=== PATIENT | male | born 1945 | race Caucasian/White ===

== ENCOUNTER 2016-12-23 10:16 | Inpatient (IN) | payer MEDICARE ==
--- NOTE | 2016-12-23 11:06 | RAD ---
TWO VIEWS CHEST: Comparison: 12-15-16, 01-01-16 History: Bilateral pneumonia. FINDINGS: Two views of the chest shows normal sized cardiomediastinal silhouette. Increased interstitial maria luz ngs are present. The patient is status post sternotomy. A pacemaker is seen with its leads in the ri ght atrium and ventricle. There are superimposed airspace opacities in both upper lobes and in the r ight lower lobe. There may be small bilateral pleural effusions. IMPRESSION: Multifocal pneumonia. POS: [facility]
[2016-12-23] MEDS ORDERED: Piperacillin/Tazobactam 4.5 GM VIAL ONE (11:25)
[2016-12-23] MEDS ORDERED: Bisacodyl 5 MG TAB PO PRN (11:52)
[2016-12-23] MEDS ORDERED: Acetaminophen 325 MG TAB PO PRN (11:52)
[2016-12-23] MEDS ORDERED: Vancomycin HCl 1 GM in Premix Bag 1 BAG IVPB SCH ×2 (12:00→21:00)
--- NOTE | 2016-12-23 12:39 | HP ---
PRIMARY CARE PHYSICIAN: Taz Piña M.D. CHIEF COMPLAINT: Shortness of breath. HISTORY OF PRESENT ILLNESS: Mr. Colón is a pleasant 71-year-old gentleman who was seen at [facility] on 12/23/2016 following transfer from [facility]. He was hospitalized at [facility] from 11/17/2016-11/23/2016. He underwent c oronary artery bypass graft during that hospitalization. He reports that 2-1/2 weeks ago, he started having shortness of breath. He reports shortness of aster ath with exertion. He also endorses orthopnea and paroxysmal nocturnal dyspnea. He also reports on and off cough that has recently become productive of yellowish sputum. He was started on cefuroxim e and steroids as well as bronchodilators by his primary care physician as outpatient. He continued to worsen. He reports worsening shortness of breath over the last 4 or 5 days. He therefore went to the emergency room at [place]. He was subsequently transferred to this facility for further m anagement. He denies any chest pain. He reports that he may have gained about 3-pound weight over the last 2 w eeks. He also reports lower extremity swelling, attributes it to steroid use. The following complete review of systems was negative, unless otherwise mentioned in the HPI or belo w: Constitutional: Weight loss or gain, sense of well-being, ability to conduct usual activities, exer cise tolerance. Skin/Breast: Rash, itching, changes in hair growth or loss, nail changes, breast lumps, tenderness, swelling, nipple discharge. Eyes: Vision, double vision, tearing, blind spots, pain. ENT/Mouth: Headaches (location, time of onset, duration, precipitating factors), vertigo, lighthead edness, injury. Vision, double vision, tearing, blind spots, pain, nose bleeding, colds, obstruction , discharge, dental difficulties, gingival bleeding, dentures, neck stiffness, pain, tenderness, mas ses in thyroid or other areas. Cardiovascular: Precordial pain, substernal distress, palpitations, syncope, dyspnea on exertion, o rthopnea, nocturnal paroxysmal dyspnea, edema, cyanosis, hypertension, heart murmurs, varicosities, phlebitis, claudication. Respiratory: Pain, shortness of breath, wheezing, stridor, cough, hemoptysis, fever or night sweats . Gastrointestinal: Poor appetite, dysphagia, indigestion, abdominal pain, heartburn, eructation, ekvin sea, vomiting, hematemesis, jaundice, constipation, or diarrhea, abnormal stools (som-colored, pili y, bloody, greasy, foul smelling), flatulence, hemorrhoids, recent changes in bowel habits. Genitourinary: Urgency, frequency, dysuria, nocturia, hematuria, polyuria, oliguria, unusual (or ch allyn in) color of urine, stones, hesitancy, change in size of stream, dribbling, acute retention or incontinence, libido, potency. Musculoskeletal: Pain, swelling, redness or heat of muscles or joints, limitation, of motion, muscu lar weakness, atrophy, cramps. Neurologic/Psychiatric: Convulsions, paralyses, tremor, incoordination, paraesthesias, difficulties with memory of speech, sensory or motor disturbances, or muscular coordination (ataxia, tremor), em otional problems, anxiety, depression, previous psychiatric care, unusual perceptions, hallucination s. Allergy/Immunologic: Skin rash, anemia, bleeding tendency, polydipsia, polyuria, intolerance to hea t or cold. PAST MEDICAL HISTORY: Significant for coronary artery disease, esophageal cancer, history of sick s inus syndrome. PAST SURGICAL HISTORY: Significant for esophagectomy, coronary artery bypass graft, fracture repair s, and pacemaker placement. ALLERGIES: He reports allergy to PENICILLIN. SOCIAL HISTORY: He does not smoke. He drinks alcohol occasionally. He denies recreational drug us e. FAMILY HISTORY: Significant for ovarian cancer in his mother. CURRENT MEDICATIONS: These include levothyroxine 125 mcg daily, Lipitor 20 mg at bedtime, prednison e oral tapering dose, Symbicort 1 puff 2 times a day, aspirin 325 mg daily, cefuroxime 250 mg 2 time s a day. CODE STATUS: I discussed his code status. He reports that he is FULL CODE. PHYSICAL EXAMINATION: GENERAL: On examination, Mr. Colón is awake and alert, not in acute distress. VITAL SIGNS: Blood pressure is 124/79, pulse is 105, his breathing at rate of 24 and saturating 95% on 2 liters of oxygen. He is afebrile. He appears frail. EYES: No scleral icterus. No conjunctival pallor. ENT: Moist mucosal membranes, no oropharyngeal erythema or exudates. NECK: Supple, nontender, patient has jugular venous distention, no thyromegaly. RESPIRATORY: Accessory muscles of breathing are mildly active. Chest wall movements are symmetric bilaterally. LUNGS: Examination reveals bilateral crackles. CARDIOVASCULAR: S1 and S2 are heard, regular. Peripheral pulses palpable. No carotid bruit, no pe ricardial rub. ABDOMEN: Soft, nontender, bowel sounds are heard, no hepatomegaly, no splenomegaly. MUSCULOSKELETAL: Power is 5/5 in all 4 extremities. He has bilateral lower extremity edema. NEUROLOGIC: Cranial nerves II-XII are intact. Deep tendon reflexes are 2+. SKIN: No rashes or subcutaneous nodules. PSYCHIATRIC: Normal mood, normal affect, patient is oriented to time, place and person. LABORATORY DATA AND IMAGING: Mr. Colón's labs and investigations were reviewed. I reviewed his elec trocardiogram, which shows normal sinus rhythm, nonspecific intraventricular conduction block, no ST changes to suggest an acute coronary syndrome. I also reviewed his chest x-ray, which shows pulmon rogelio infiltrates in both upper lobes. He also has a right lower lobe infiltrate. Laboratory investi gation done at [facility] show white count of 6,900, hemoglobin 11.2, platelet cou nt 205,000. Sodium 138, potassium 4, creatinine 1.2, calcium 8.7, CK 70, decreased albumin of 3.3, elevated alkaline phosphatase of 100, normal total bilirubin of 0.6, normal ALT, normal AST, elevate d BNP of 805 and normal troponin I. ASSESSMENT AND PLAN: Mr. Colón is a pleasant 71-year-old gentleman who was seen at [facility]. His problem list includes: 1. Shortness of breath: Etiology unclear, appears to be multifactorial, including pneumonia and co ngestive heart failure. 2. Pneumonia: Mr. Colón had recent hospitalization. Accordingly, he will be treated for hospital a cquired pneumonia. He has been started on Zosyn and vancomycin, I will continue the same. We will request Pulmonology consult for their opinion and help with further management. 3. Congestive heart failure: Suspected. Mr. Colón endorses orthopnea and paroxysmal nocturnal dysp wilder as well as lower extremity edema. We will request Cardiology Service opinion regarding new onse t congestive heart failure. We will have his pacemaker interrogated and check 2D echocardiogram. W e will also start him on diuretics. 4. Coronary artery disease, status post coronary artery bypass graft, appears to be stable. Many thanks for allowing me to participate in your patient's care. Please feel free to contact me w ith any questions or concerns. LEVEL OF RISK: High. LEVEL OF COMPLEXITY: High.
[2016-12-23 13:11] LABS: Troponin I 0.031 ng/mL (< 0.028)
[2016-12-23] MEDS ORDERED: Sodium Chloride 0.45% 1,000 ML IV SCH (15:45)
[2016-12-23 16:33] LABS: Anion Gap 13 mmol/L (10-20); BUN (Urea Nitrogen) 15 mg/dL (8.4-25.7); Calc. Creatinine Clearance 52 mL/min (70-130); Calcium 8.3 mg/dL (7.8-10.44); Carbon Dioxide 29 mmol/L (23-31); Chloride 101 mmol/L (98-107); Estimated GFR-MDRD 72
[2016-12-23] MEDS: Furosemide 20 MG/2 ML VIAL SLOW IVP SCH (16:45)
--- NOTE | 2016-12-23 17:25 | CON ---
DATE OF CONSULTATION: 12/23/2016 HISTORY OF PRESENT ILLNESS: Mr. Colón is a pleasant 71-year-old male, who has survived esophageal ca ncer with esophageal resection and a pull-through procedure. He recently underwent coronary artery bypass grafting and did well with that postoperatively. He wa s sent home and on the he was seen in [place] for complaints of cough, chest congestion, a nd shortness of breath. He received b.i.d. antibiotics (he cannot recall the name) as well as Medro l Miki it sounds like and got better for few days and then the last 4-5 days has been getting slowly worse. He subsequently has been admitted. PAST MEDICAL HISTORY: Remarkable for; 1. Esophageal cancer status post Andres Amarjit esophagectomy. 2. History of a right subclavian MediPort placement. 3. History of a left subclavian pacemaker placement. 4. History of multiple fracture repairs in the past. 5. Nonsmoker, rare drinker. 6. Hypothyroidism on replacement. 7. History of chronic obstructive pulmonary disease. 8. History of a lipid disorder. 9. History of a cystectomy. FAMILY HISTORY: Negative for vascular disease and lung disease at an early age. REVIEW OF SYSTEMS: Otherwise negative. He complains mainly of coughing and chest congestion. He s ays he feels better than he felt this morning. PHYSICAL EXAMINATION: VITAL SIGNS: He is afebrile, heart rate is 94, respiratory rate is 18, oximetry is 95% on 2 liters, blood pressure 138/89. HEENT: Pupils are equal. Sclerae is anicteric. NECK: Supple. Trachea is midline. His sternal incision is healing nicely. LUNGS: Remarkable for mild rhonchi in his anterior upper chest. HEART: Regular rhythm. S1 and S2 are normal. ABDOMEN: Soft and nontender. EXTREMITIES: Without clubbing, cyanosis, or edema. LABORATORY DATA: White count is 4.1, hemoglobin 9.1, platelets 110,000. MCV is 98. There are no e lectrolytes from today. Chest radiograph reviewed by me, compared with 12/15/2016 film, suggestive of slight improvement in his bilateral upper lobe infiltrates. IMPRESSION AND PLAN: Pneumonia after recent coronary artery bypass grafting combined with chronic o bstructive pulmonary disease exacerbation. I suspect his transient improvement was because of the s teroids. I do not think he is getting dramatically worse from the pneumonia standpoint. I suspect these are through the acute illness phase. We would agree with broad antimicrobial therapy, steroid s, gentle IV hydration, nebulizer treatments and serial exams. Recommend checking his electrolytes and his renal function.
[2016-12-23] MEDS ORDERED: Vancomycin HCl 500 MG in Sodium Chloride 0.9% 100 ML IVPB SCH (18:00)
--- NOTE | 2016-12-23 18:40 | CON ---
CARDIOLOGY CONSULTATION NOTE DATE OF CONSULTATION: 12/23/2016 REASON FOR CONSULTATION: Shortness of breath. HISTORY OF PRESENT ILLNESS: Mr. Han Colón is a pleasant 71-year-old gentleman previously seen by Shawn Sharma. Patient was admitted with difficulty breathing. The patient has a history of complete heart block and underwent temporary pacemaker insertion last f all by Dr. Paige. Subsequently, he underwent permanent pacemaker insertion by Dr. Alli Sharma. Luis portillo underwent cardiac catheterization and subsequent coronary bypass grafting in November of this yea r. Patient had left main stenosis. He was found to have suitable targets for bypass surgery to the LAD and diagonal, but the circumflex was not a suitable target. He had vein grafts placed. There is no mention of the right coronary artery. The patient states he has been doing okay, the last few days has been having progressively trouble breathing. He said it got so bad at home, he did not th ink he is going to make it. He was \\\\"gurgling.\\\\" He finally came here to the emergency room wher e he is being seen and admitted for further evaluation. The patient did not have chest pain, just intense shortness of breath and \\\\"gurgling.\\\\" MEDICATION AT HOME: A list of medicines he was discharged, aspirin 325 mg a day, Lipitor 20 mg a da y, prednisone, Ceftin, and [place] in October of this year. REVIEW OF SYSTEMS: Constitutional: Positive for weakness and fatigue. He is also very thin. Visi on: No changes. Hearing: No changes. Pulmonary: Positive for cough and gurgling. Cardiac: Pos itive for very severe shortness of breath. Gastrointestinal: No nausea, vomiting or diarrhea. Ski n: No rashes. Neurologic: No unilateral weakness or numbness. Psychiatric: No unusual depression or anxiety. Hematologic: No unusual bruising. Genitourinary: No burning with urination. Musculoskeletal: No unusual joint pains. ALLERGIES: HEPARIN. SOCIAL HISTORY: He previously smoked and stopped. PHYSICAL EXAMINATION: GENERAL: This is a very thin underweight elderly gentleman. He says he is breathing better than he was previously. He still has a lot of upper airway sounds. VITAL SIGNS: Blood pressure 138/90 and pulse 94, it is regular. EYES: Sclerae are nonicteric. Mouth; mucous membranes are moist. NECK: Supple. No lymphadenopathy. LUNGS: Diffuse rhonchi bilaterally. I do not hear any wheezing. CARDIAC: Normal S1 and normal S2. I do not hear any murmur, rub or gallop but the lung sounds are so loud, it is difficult to hear murmurs. ABDOMEN: Soft and nontender. EXTREMITIES: No clubbing, no cyanosis, no edema. Pedal pulses are diminished, but the popliteal pu lses are palpable bilaterally. PERTINENT LABORATORY AND IMAGING DATA: The potassium was 3.5 on the , BNP, I have ordered it, b ut it is pending. Hemoglobin, looks like it is pending. Chest x-ray shows interstitial infiltrates, thought to be multifocal pneumonia. EKG reveals ventric ular-paced rhythm. Echocardiogram revealed ejection fraction of 50% to 55% with moderate to severe mitral, aortic and tricuspid insufficiency. Laboratory; it looks like he was sent in from [place]. Sodium is 138, potassium is 4.0, BUN is 1 4 and creatinine 1.2. Hemoglobin is 11.2, hematocrit is 34.6 and WBC is 6.9. ASSESSMENT: 1. Coronary artery disease, status post bypass surgery. 2. Ejection fraction 50% to 55%. 3. Moderate to severe tricuspid and aortic insufficiency. 4. Previous pacemaker insertion. 5. Chronic obstructive pulmonary disease. 6. Patchy infiltrates, probably pneumonia, although it could be atypical presentation of heart fail ure. PLAN: 1. He is on intravenous diuretics. 2. He is receiving antibiotics. 3. Dr. Sharma will resume patient's care tomorrow. 4. Pulmonary consultation in the works as well.
[2016-12-23] MEDS: Atorvastatin Calcium 20 MG TAB PO SCH (21:29)
[2016-12-23] MEDS: guaiFENesin ER 600 MG TAB PO SCH (21:29)
[2016-12-23] MEDS: Apixaban 5 MG TAB PO SCH (21:29)
[2016-12-23] MEDS: Temazepam 15 MG CAP PO PRN (22:20)
[2016-12-23] MEDS: Piperacillin/Tazobactam 4.5 GM in Sodium Chloride 0.9% 100 ML IVPB SCH (22:21)
[2016-12-24] MEDS: Vancomycin HCl 500 MG in Sodium Chloride 0.9% 100 ML IVPB SCH ×2 (00:44→13:01)
[2016-12-24 04:52] VITALS: BMI 18.6
[2016-12-24] MEDS: Piperacillin/Tazobactam 4.5 GM in Sodium Chloride 0.9% 100 ML IVPB SCH ×3 (04:58→21:52)
[2016-12-24] MEDS: Furosemide 20 MG/2 ML VIAL SLOW IVP SCH ×2 (05:17→14:57)
[2016-12-24 06:03] LABS: #Lymphocytes 0.3 thou/uL (1.20-3.40); #Monocytes 0.1 thou/uL (0.11-0.59); #Neutrophils 3.7 thou/uL (1.40-6.50); %Eosinophils 0.4 % (0.0-10.0); %Lymphocytes 7.8 % (21.0-51.0); %Monocytes 2.4 % (0.0-10.0); Hematocrit 32.7 % (42.0-52.0); Mean Platelet Volume 7.6 fL (7.4-10.4); Red Blood Cell (RBC) Count 3.38 mill/uL (4.70-6.10); White Blood Cell (WBC) Count 4.1 thou/uL (4.8-10.8)
[2016-12-24 06:29] LABS: Anion Gap 13 mmol/L (10-20); BUN (Urea Nitrogen) 17 mg/dL (8.4-25.7); Calc. Creatinine Clearance 52 mL/min (70-130); Carbon Dioxide 30 mmol/L (23-31); Chloride 99 mmol/L (98-107); Estimated GFR-MDRD 68
[2016-12-24] MEDS: Levothyroxine Sodium 125 MCG TAB PO SCH (09:48)
[2016-12-24] MEDS: guaiFENesin ER 600 MG TAB PO SCH ×2 (09:48→21:54)
[2016-12-24] MEDS: Apixaban 5 MG TAB PO SCH ×2 (09:48→21:52)
[2016-12-24] MEDS: Aspirin 325 MG TAB PO SCH (09:48)
[2016-12-24] MEDS ORDERED: Sterile Water 10 ML ONE (11:59)
--- NOTE | 2016-12-24 12:35 | PDOC.PN ---
- Subjective Encounter Start Date: 12/24/16 Encounter Start Time: 07:40 Pt seen for followup re: shortness of breath. Reports cough and shortness of breath are better. Still has sputum. No chest pain or fevers. - Objective Resuscitation Status: Resuscitation Status FULL:Full Resuscitation MAR Reviewed: Yes Vital Signs & Weight: Vital Signs (12 hours) Temp Pulse Pulse Pulse Resp BP BP 12/24/16 10:20 88 16 12/24/16 09:10 99 107 H 98/55 L 107/60 12/24/16 08:00 97.4 F L 91 18 12/24/16 06:38 88 16 12/24/16 04:00 97.5 F L 96 20 BP Pulse Ox Pulse Ox Pulse Ox 12/24/16 10:20 12/24/16 09:10 96 95 12/24/16 08:00 94/54 L 95 12/24/16 06:38 98 12/24/16 04:00 91/54 L 96 Weight Admit Weight 125 lb Weight 130 lb 3.2 oz I&O: 12/23/16 12/24/16 12/25/16 06:59 06:59 06:59 Intake Total 1060 200 Output Total 1800 Balance -740 200 Result Diagrams: 12/24/16 05:40 12/24/16 05:40 EKG Reviewed by me: Yes (Tele: NSR) Phys Exam - Physical Examination Constitutional: NAD HEENT: moist MMs Neck: supple Respiratory: no wheezing, no rhonchi [place] crackles+ Cardiovascular: RRR, no rub Gastrointestinal: soft, non-tender, no distention, positive bowel sounds Musculoskeletal: no edema, pulses present Neurological: non-focal, normal sensation, moves all 4 limbs Lymphatic: no nodes Psychiatric: normal affect, A&O x 3 Skin: no rash, normal turgor, cap refill <2 seconds Dx/Plan (1) Shortness of breath Code(s): R06.02 - SHORTNESS OF BREATH Status: Acute (2) COPD exacerbation Code(s): J44.1 - CHRONIC OBSTRUCTIVE PULMONARY DISEASE W (ACUTE) EXACERBATION Status: Acute (3) Pneumonia Code(s): J18.9 - PNEUMONIA, UNSPECIFIED ORGANISM Status: Acute (4) CHF (congestive heart failure) Code(s): I50.9 - HEART FAILURE, UNSPECIFIED Status: Suspected Qualifiers: Congestive heart failure type: diastolic (5) CAD (coronary artery disease) Code(s): I25.10 - ATHSCL HEART DISEASE OF [place] CORONARY ARTERY W/O ANG PCTRS Status: Chronic (6) S/P CABG (coronary artery bypass graft) Code(s): Z95.1 - PRESENCE OF AORTOCORONARY BYPASS GRAFT Status: Chronic - Plan plan discussed w/ family, continue antibiotics, out of bed/ambulate * . Pt on anticoagulation and steroids, start PPI. Continue diuretics for ? diastolic CHF. Continue oxygen, steroids, bronchodilators, antibiotics. Review of Systems - Review of Systems Constitutional: negative: Fever, Chills, Sweats, Weakness, Malaise - Medications/Allergies Allergies/Adverse Reactions: Allergies Allergy/AdvReac Type Severity Reaction Status Date / Time heparin Allergy Verified 11/09/16 17:22 Penicillins Allergy Verified 12/23/16 18:45 Medications: Current Medications Acetaminophen (Tylenol) 650 mg PO Q4H PRN PRN Reason: Headache/Fever or Pain Albuterol/Ipratropium (Duoneb) 3 ml NEB [id number] PRN PRN Reason: SOB &/or Wheezing Albuterol/Ipratropium (Duoneb) 3 ml NEB [id number] [facility] Last Admin: 12/24/16 10:20 Dose: 3 ml Apixaban (Eliquis) 2.5 mg PO BID [facility] Last Admin: 12/24/16 09:48 Dose: 2.5 mg Aspirin (Aspirin) 325 mg PO DAILY [facility] Last Admin: 12/24/16 09:48 Dose: 325 mg Atorvastatin Calcium (Lipitor) 20 mg PO HS [facility] Last Admin: 12/23/16 21:29 Dose: 20 mg Bisacodyl (Dulcolax) 10 mg PO DAILYPRN PRN PRN Reason: Constipation Furosemide (Lasix) 20 mg SLOW IVP 0600,1400 [facility] Last Admin: 12/24/16 05:17 Dose: Not Given Guaifenesin (Mucinex) 600 mg PO Q12HR [facility] Last Admin: 12/24/16 09:48 Dose: 600 mg Piperacillin Sod/Tazobactam (Sod 4.5 gm/ Sodium Chloride) 100 mls @ 200 mls/hr IVPB 0400,1200,2000 [facility] Last Admin: 12/24/16 12:19 Dose: 100 mls Vancomycin HCl 500 mg/ Sodium (Chloride) 100 mls @ 100 mls/hr IVPB 1200,2359 [facility] Last Admin: 12/24/16 00:44 Dose: 100 mls Levothyroxine Sodium (Synthroid) 125 mcg PO DAILY [facility] Last Admin: 12/24/16 09:48 Dose: 125 mcg Methylprednisolone Sodium Succinate (Solu-Medrol) 40 mg IVP Q6HR [facility] Last Admin: 12/24/16 12:18 Dose: 40 mg Miscellaneous Medication (Pharmacy To Dose) 1 each IVPB ONE PRN PRN Reason: DOSING Stop: 01/22/17 12:52 Pantoprazole Sodium (Protonix) 40 mg PO DAILY [facility] Temazepam (Restoril) 15 mg PO HS PRN PRN Reason: Insomnia Last Admin: 12/23/16 22:20 Dose: 15 mg
--- NOTE | 2016-12-24 15:33 | PRG ---
DATE OF SERVICE: 12/24/2016 SERVICE: Pulmonary Medicine. INTERVAL HISTORY: The patient is doing fine from a cardiovascular and respiratory standpoint. In fact, he feels that his cough is significantly improved. His shortness of breath has also resolved. Otherwise, he feels that his energy is back to normal and he has returned to his usual state. He continues to cough up a little bit of yellow tinge nearly translucent phlegm. PHYSICAL EXAMINATION: VITAL SIGNS: Afebrile, pulse 92, blood pressure 92/56, respirations 17, saturation 97% on room air. GENERAL: The patient is awake and alert, in no apparent distress. LUNGS: Decent air entry. There is a slightly prolonged expiratory phase with rhonchi present. I do not appreciate wheezing or crackles presently. HEART: Normal rate, regular. ABDOMEN: Soft, nontender, nondistended. Bowel sounds positive. MUSCULOSKELETAL: No cyanosis or clubbing. No pitting in the bilateral lower extremities. NEUROLOGIC: Grossly nonfocal. LABORATORY DATA: WBC 4.1, hemoglobin 10.2, platelets 153,000 with 90% neutrophil count. Basic metabolic profile remains unremarkable. Previous BNP was 900. Troponin 0.03. Blood cultures x2 are negative to date. ASSESSMENT: 1. Acute hypoxic respiratory failure. 2. Healthcare-associated pneumonia. 3. Chronic obstructive pulmonary disease with acute exacerbation. 4. Coronary artery disease, status post recent coronary bypass graft. PLAN: We will continue our supportive care while we await cultures from the blood studies. If these are negative, we can transition over to oral antibiotics in 24 hours and consider discharge from the hospital. I will encourage mobilization through today. JEANNINE
[2016-12-24] MEDS: Atorvastatin Calcium 20 MG TAB PO SCH (21:53)
[2016-12-24] MEDS: Temazepam 15 MG CAP PO PRN (21:54)
[2016-12-25] MEDS: Piperacillin/Tazobactam 4.5 GM in Sodium Chloride 0.9% 100 ML IVPB SCH ×2 (03:40→11:44)
[2016-12-25 05:51] LABS: #Lymphocytes 0.8 thou/uL (1.20-3.40); #Monocytes 0.8 thou/uL (0.11-0.59); #Neutrophils 14.5 thou/uL (1.40-6.50); %Basophils 0.1 % (0.0-1.0); %Lymphocytes 4.8 % (21.0-51.0); %Monocytes 4.9 % (0.0-10.0); Hematocrit 30.6 % (42.0-52.0); Mean Platelet Volume 7.8 fL (7.4-10.4); Red Blood Cell (RBC) Count 3.17 mill/uL (4.70-6.10); White Blood Cell (WBC) Count 16.1 thou/uL (4.8-10.8)
[2016-12-25] MEDS: Furosemide 20 MG/2 ML VIAL SLOW IVP SCH ×2 (06:03→14:10)
[2016-12-25 06:13] LABS: Anion Gap 13 mmol/L (10-20); BUN (Urea Nitrogen) 23 mg/dL (8.4-25.7); Calc. Creatinine Clearance 48 mL/min (70-130); Calcium 8.1 mg/dL (7.8-10.44); Carbon Dioxide 30 mmol/L (23-31); Chloride 99 mmol/L (98-107); Estimated GFR-MDRD 62
[2016-12-25] MEDS: Apixaban 5 MG TAB PO SCH ×2 (08:53→20:52)
[2016-12-25] MEDS: Aspirin 325 MG TAB PO SCH (08:54)
[2016-12-25] MEDS: Levothyroxine Sodium 125 MCG TAB PO SCH (08:55)
[2016-12-25] MEDS: guaiFENesin ER 600 MG TAB PO SCH ×2 (08:56→20:52)
--- NOTE | 2016-12-25 14:52 | PDOC.PN ---
- Subjective Encounter Start Date: 12/25/16 Encounter Start Time: 07:00 Pt seen for followup re: shortness of breath. Denies chest pain, shortness of breath, fevers or chills. No nausea or vomiting. - Objective Resuscitation Status: Resuscitation Status FULL:Full Resuscitation MAR Reviewed: Yes Vital Signs & Weight: Vital Signs (12 hours) Temp Pulse Pulse Pulse Resp BP BP 12/25/16 14:23 96 16 12/25/16 11:45 97.6 F 92 22 H 12/25/16 10:18 86 16 12/25/16 09:37 98 90 104/58 L 87/53 L 12/25/16 08:00 97.6 F 103 H 20 12/25/16 06:56 92 12 12/25/16 06:00 12/25/16 04:00 97.7 F 95 18 BP Pulse Ox Pulse Ox Pulse Ox 12/25/16 14:23 12/25/16 11:45 91/53 L 95 12/25/16 10:18 12/25/16 09:37 90 L 96 12/25/16 08:00 91/52 L 96 12/25/16 06:56 12/25/16 06:00 97 12/25/16 04:00 98/60 96 Weight Admit Weight 125 lb Weight 129 lb 9.6 oz I&O: 12/24/16 12/25/16 12/26/16 06:59 06:59 06:59 Intake Total 1060 1741 Output Total 1800 1600 Balance -740 141 Result Diagrams: 12/25/16 05:17 12/25/16 05:17 EKG Reviewed by me: Yes (Tele: NSR) Phys Exam - Physical Examination Constitutional: NAD HEENT: moist MMs, oral pharynx no lesions Neck: supple Respiratory: no wheezing, no rales, no rhonchi, clear to auscultation bilateral Cardiovascular: RRR, no rub Gastrointestinal: soft, positive bowel sounds Musculoskeletal: pulses present Neurological: moves all 4 limbs Psychiatric: normal affect Dx/Plan (1) Shortness of breath Code(s): R06.02 - SHORTNESS OF BREATH Status: Acute (2) COPD exacerbation Code(s): J44.1 - CHRONIC OBSTRUCTIVE PULMONARY DISEASE W (ACUTE) EXACERBATION Status: Acute (3) Pneumonia Code(s): J18.9 - PNEUMONIA, UNSPECIFIED ORGANISM Status: Acute (4) CHF (congestive heart failure) Code(s): I50.9 - HEART FAILURE, UNSPECIFIED Status: Suspected Qualifiers: Congestive heart failure type: diastolic (5) CAD (coronary artery disease) Code(s): I25.10 - ATHSCL HEART DISEASE OF [place] CORONARY ARTERY W/O ANG PCTRS Status: Chronic (6) S/P CABG (coronary artery bypass graft) Code(s): Z95.1 - PRESENCE OF AORTOCORONARY BYPASS GRAFT Status: Chronic - Plan continue antibiotics, DVT proph w/SCDs * . Step down to oral antibiotics. Steroid dose has been decreased. Likely home in 1-2 days. Will likely need low dose furosemide over the next few days. Review of Systems - Medications/Allergies Allergies/Adverse Reactions: Allergies Allergy/AdvReac Type Severity Reaction Status Date / Time heparin Allergy Verified 11/09/16 17:22 Penicillins Allergy Verified 12/23/16 18:45 Medications: Current Medications Acetaminophen (Tylenol) 650 mg PO Q4H PRN PRN Reason: Headache/Fever or Pain Albuterol/Ipratropium (Duoneb) 3 ml NEB [id number] PRN PRN Reason: SOB &/or Wheezing Albuterol/Ipratropium (Duoneb) 3 ml NEB [id number] [facility] Last Admin: 12/25/16 14:23 Dose: 3 ml Apixaban (Eliquis) 2.5 mg PO BID [facility] Last Admin: 12/25/16 08:53 Dose: 2.5 mg Aspirin (Aspirin) 325 mg PO DAILY [facility] Last Admin: 12/25/16 08:54 Dose: 325 mg Atorvastatin Calcium (Lipitor) 20 mg PO HS [facility] Last Admin: 12/24/16 21:53 Dose: 20 mg Bisacodyl (Dulcolax) 10 mg PO DAILYPRN PRN PRN Reason: Constipation Furosemide (Lasix) 20 mg SLOW IVP 0600,1400 [facility] Last Admin: 12/25/16 14:10 Dose: 20 mg Guaifenesin (Mucinex) 600 mg PO Q12HR [facility] Last Admin: 12/25/16 08:56 Dose: 600 mg Piperacillin Sod/Tazobactam (Sod 4.5 gm/ Sodium Chloride) 100 mls @ 200 mls/hr IVPB 0400,1200,2000 [facility] Last Admin: 12/25/16 11:44 Dose: 100 mls Levothyroxine Sodium (Synthroid) 125 mcg PO DAILY [facility] Last Admin: 12/25/16 08:55 Dose: 125 mcg Methylprednisolone Sodium Succinate (Solu-Medrol) 40 mg IVP DAILY [facility] Last Admin: 12/25/16 08:56 Dose: 40 mg Pantoprazole Sodium (Protonix) 40 mg PO DAILY [facility] Last Admin: 12/25/16 08:55 Dose: 40 mg Sodium Chloride (Flush - Normal Saline) 10 ml IVF Q12HR [facility] Last Admin: 12/25/16 11:45 Dose: 10 ml Sodium Chloride (Flush - Normal Saline) 10 ml IVF PRN PRN PRN Reason: Saline Flush Last Admin: 12/25/16 14:10 Dose: 10 ml Temazepam (Restoril) 15 mg PO HS PRN PRN Reason: Insomnia Last Admin: 12/24/16 21:54 Dose: 15 mg
--- NOTE | 2016-12-25 16:26 | PRG ---
DATE OF SERVICE: 12/25/2016 SERVICE: Pulmonary Medicine. INTERVAL HISTORY: The patient is doing fine from a respiratory standpoint. He is breathing very co mfortably. The cough is actually improving. He has less sputum production. He denies any current fevers, chills, nausea, vomiting. There were no overnight events. PHYSICAL EXAMINATION: VITAL SIGNS: Afebrile, pulse 92, blood pressure 91/53, respirations 16, saturation 95% on room air. GENERAL: Patient is awake, alert, in no apparent distress. LUNGS: Excellent air entry with no prolonged expiratory phase, wheezing, rhonchi or crackles. HEART: Normal rate, regular. ABDOMEN: Soft, nontender, nondistended. Bowel sounds positive. MUSCULOSKELETAL: No cyanosis or clubbing. No pitting in the bilateral lower extremities. NEUROLOGIC: Grossly nonfocal. LABORATORY DATA: WBC 16.1, hemoglobin 9.6, platelets 174,000. Basic metabolic profile is unremarka ble except for creatinine that is gently up trending to 1.16. Potassium 3.6. Blood cultures x2 are unremarkable today. ASSESSMENT: 1. Acute hypoxic respiratory failure, resolved. 2. Healthcare-associated pneumonia. 3. Chronic obstructive pulmonary disease with acute exacerbation. 4. Coronary artery bypass graft, recent. PLAN: Replace dose of potassium. If his cultures remain negative, his antibiotics can be switched over to something oral and he can be considered for discharge in 24-48 hours. Pulmonary will contin ue to follow while the patient remains in-house.
[2016-12-25] MEDS: Temazepam 15 MG CAP PO PRN (20:52)
[2016-12-25] MEDS: Cefdinir 300 MG CAP PO SCH (20:52)
[2016-12-25] MEDS: Atorvastatin Calcium 20 MG TAB PO SCH (20:52)
[2016-12-26 05:34] LABS: #Eosinphils 0.1 thou/uL (0.0-0.7); #Monocytes 0.8 thou/uL (0.11-0.59); %Basophils 0.1 % (0.0-1.0); %Eosinophils 0.4 % (0.0-10.0); %Lymphocytes 7.9 % (21.0-51.0); %Monocytes 6.1 % (0.0-10.0); Hematocrit 31.3 % (42.0-52.0); Mean Platelet Volume 7.4 fL (7.4-10.4); Red Blood Cell (RBC) Count 3.24 mill/uL (4.70-6.10); White Blood Cell (WBC) Count 12.8 thou/uL (4.8-10.8)
[2016-12-26 05:51] LABS: Anion Gap 10 mmol/L (10-20); BUN (Urea Nitrogen) 27 mg/dL (8.4-25.7); Calc. Creatinine Clearance 51 mL/min (70-130); Calcium 7.8 mg/dL (7.8-10.44); Carbon Dioxide 35 mmol/L (23-31); Chloride 98 mmol/L (98-107); Estimated GFR-MDRD 66
[2016-12-26] MEDS: Aspirin 325 MG TAB PO SCH (08:27)
[2016-12-26] MEDS: guaiFENesin ER 600 MG TAB PO SCH (08:27)
[2016-12-26] MEDS: Cefdinir 300 MG CAP PO SCH (08:27)
[2016-12-26] MEDS: Levothyroxine Sodium 125 MCG TAB PO SCH (08:27)
[2016-12-26] MEDS: Apixaban 5 MG TAB PO SCH (08:27)
[2016-12-26] MEDS ORDERED: Furosemide 20 MG TAB PO SCH (09:00)
[2016-12-26] MEDS ORDERED: methylPREDNISolone 4 mg Tablet PO SCH ×2 (11:45→12:00)
--- NOTE | 2016-12-26 11:54 | PRG ---
DATE OF SERVICE: 12/26/2016 SUBJECTIVE: He is awake and alert, in no distress. He wants to go home. PHYSICAL EXAMINATION: VITAL SIGNS: Temperature 97.7, pulse 91, respirations 16, O2 saturation was 98% on room air, blood pressure 96/54. HEENT: Unremarkable. NECK: No JVD. LUNGS: His chest is clear to auscultation without wheezing. CARDIAC: S1 and S2 regular. ABDOMEN: Soft. EXTREMITIES: No edema. LABORATORY DATA: White blood cell count 12.8, hematocrit 31, platelet count 168. Sodium 139, potas sium 3.7, chloride 90, CO2 35, BUN 27, creatinine 1.1, glucose 100. ASSESSMENT: 1. Acute hypoxic respiratory failure, which is resolved. 2. Health care associated pneumonia. 3. Chronic obstructive pulmonary disease. 4. Status post coronary artery bypass grafting surgery. RECOMMENDATIONS: I think this gentleman is stable for discharge. I would complete a total of 10 da ys of antibiotics between hospital and home. He can follow up with Dr. Tran as an outpatient. P rednisone should be tapered over the next 7-10 days.
--- NOTE | 2016-12-26 12:03 | DIS ---
DATE OF ADMISSION: 12/23/2016 DATE OF DISCHARGE: 12/26/2016 PRIMARY CARE PHYSICIAN: Taz Piña M.D. DISCHARGE DIAGNOSES: 1. Acute hypoxic respiratory failure, resolved. 2. Healthcare associated pneumonia. 3. Acute exacerbation of chronic obstructive pulmonary disease. 4. Congestive heart failure, diastole, suspected. CONDITION OF PATIENT AT THE TIME OF DISCHARGE: Stable. I assessed Mr. Colón on the day of discharge . He denies any chest pain or shortness of breath. DISCHARGE PHYSICAL EXAMINATION: VITAL SIGNS: Stable. HEART: S1 and S2 are heard, regular. LUNGS: Clear to auscultation bilaterally. DISCHARGE MEDICATIONS: ProAir HFA 2 puffs 2 times a day, aspirin 325 mg daily, Lipitor 20 mg at bed time, Omnicef 300 mg 2 times a day for 7 more days, Lasix 20 mg daily, started during this hospitali zation, [place] p.r.n., ipratropium/albuterol sulfate nebulizers q.4 hours, levothyroxine 125 mcg jasmina y, Medrol Dosepak. HOSPITAL COURSE: Mr. Colón is a pleasant 71-year-old gentleman who was admitted to [facility] on 12/23/2016 for shortness of breath secondary to COPD exacerbation, healthcare as sociated pneumonia, and suspected congestive heart failure. He was seen by Cardiology and Pulmonolo gy Services. He received diuretics as well as antibiotics, steroids, bronchodilators, and oxygen. He improved clinically, and is being discharged home in a stable condition. IMAGING AND LABORATORY DATA: A 2D echocardiogram on 12/23/2016 showed mildly increased left ventric ular size, ejection fraction estimated at 50%-55% for the left ventricle, moderate to severe mitral regurgitation, moderate to severe aortic regurgitation, moderate to severe tricuspid regurgitation a nd moderately elevated pulmonary artery pressures. He also had moderate pulmonic regurgitation. On the day of discharge, he has a white count of 12,800, hemoglobin 9.8, platelet count 168,000, judit l sodium, normal potassium, elevated carbon dioxide of 35, normal creatinine of 1.09. His BNP durin g this hospitalization was 928.8. He has been stepped down to oral antibiotics. He is also being started on Medrol Dosepak at the chitra e of discharge. He has also been started on Lasix 20 mg daily. He has been advised to follow up wi th his primary care physician. His electrolytes and creatinine will need to be checked daily to ens ure stability. Many thanks for allowing me to participate in your patient's care. Please feel free to contact me w ith any questions or concerns. DISCHARGE DESTINATION: Home. TOTAL AMOUNT OF TIME SPENT COORDINATING THIS DISCHARGE: 33 minutes.
[2016-12-26 12:10] VITALS: TEMP 97.6
[2016-12-26 12:30] VITALS: BP 103/56
[2016-12-26] MEDS ORDERED: predniSONE 20 MG TAB PO SCH (21:00)
[2016-12-27] MEDS ORDERED: methylPREDNISolone 4 mg Tablet PO SCH ×2 (08:00→21:00)
[2016-12-28] MEDS ORDERED: methylPREDNISolone 4 mg Tablet PO SCH (08:00)
[2016-12-29] MEDS ORDERED: methylPREDNISolone 4 mg Tablet PO SCH (08:00)
[2016-12-30] MEDS ORDERED: methylPREDNISolone 4 mg Tablet PO SCH (08:00)
[2016-12-31] MEDS ORDERED: methylPREDNISolone 4 mg Tablet PO SCH (08:00)
== END 2016-12-26 14:33 | disposition home or self-care (01) | DRG 190 ==
LOC: ERS 10:16 → 2NO 11:25
PROVIDERS: ADMIT Internal Medicine; ATTEND Internal Medicine
DX: J44.0 Chronic obstructive pulmonary disease with (acute) lower respiratory infection (principal); J18.9 Pneumonia, unspecified organism; J96.01 Acute respiratory failure with hypoxia; I50.30 Unspecified diastolic (congestive) heart failure; J44.1 Chronic obstructive pulmonary disease with (acute) exacerbation; Z87.891 Personal history of nicotine dependence; Z95.1 Presence of aortocoronary bypass graft; Z95.0 Presence of cardiac pacemaker; Z85.01 Personal history of malignant neoplasm of esophagus; Z88.0 Allergy status to penicillin; I25.10 Atherosclerotic heart disease of native coronary artery without angina pectoris; I08.3 Combined rheumatic disorders of mitral, aortic and tricuspid valves
CPT/HCPCS: 36415; 71020; 80048; 83880; 84484; 85025; 87040; 93306; 93798; 94760; 96365; 96367; A4216; J1940; J2543; J2920; J3370; J7050; J7620

== ENCOUNTER 2017-01-09 12:18 | Inpatient (IN) | payer MEDICARE ==
[2017-01-09] MEDS ORDERED: Piperacillin/Tazobactam 4.5 GM VIAL ONE (12:43)
[2017-01-09 13:23] LABS: Lactic Acid - Sepsis 1.4 mmol/L (0.5-2.2)
[2017-01-09 13:46] LABS: Bilirubin Negative (Negative); Blood, Urine Negative (Negative); Glucose, Urine (Dipstick) Negative (Negative); Ketone, Urine Negative (Negative); Nitrite Negative (Negative); Protein, Urine (Dipstick) Negative (Neg-Trace); Urobilinogen 0.2 mg/dL (0.2-1.0)
[2017-01-09] MEDS ORDERED: Loratadine 10 MG TAB PO PRN (16:09)
[2017-01-09] MEDS ORDERED: Diabetic Tussin 200 MG/10 ML UDCUP PO PRN (16:09)
[2017-01-09] MEDS ORDERED: Artificial Tear Sol 15 ML BOT EA EYE PRN (16:09)
[2017-01-09] MEDS ORDERED: Ondansetron HCl/PF 4 MG/2 ML Vial IVP PRN (16:09)
[2017-01-09] MEDS ORDERED: Sodium Chloride 0.65% Nasal 44 ML BOT EA NARE PRN (16:09)
[2017-01-09] MEDS ORDERED: Eucerin (Mineral Oil/Petrolatum,White) 30 gm Jar TOP PRN (16:09)
[2017-01-09] MEDS ORDERED: Milk Of Magnesia 30 ML UDCUP PO PRN (16:09)
[2017-01-09] MEDS ORDERED: Senokot 8.6 MG TAB PO PRN (16:09)
[2017-01-09] MEDS ORDERED: Loperamide HCl 2 MG CAP PO PRN (16:09)
[2017-01-09] MEDS ORDERED: Chloraseptic Spray 180 ml Bottle PO PRN (16:09)
[2017-01-09] MEDS ORDERED: Ondansetron ODT 4 MG TAB PO PRN (16:09)
[2017-01-09] MEDS ORDERED: Mag-Al 1200 mg/1200 mg/30 ML UDCUP PO PRN (16:09)
[2017-01-09] MEDS ORDERED: HYDROcodone/Acetaminophen 5/325 mg Tablet PO PRN (16:09)
[2017-01-09] MEDS ORDERED: Acetaminophen 325 MG TAB PO PRN (16:09)
--- NOTE | 2017-01-09 16:17 | RAD ---
2 VIEWS CHEST: Date: 01/09/17 COMPARISON: 12/23/16. HISTORY: Pneumonia and cough. FINDINGS: Two views of the chest show normal sized cardiomediastinal silhouette. The pacemaker is unchanged in position. The patient is status post sternotomy. There are stable mixed alveolar/interstitial opaci ties in the lungs which may be chronic. IMPRESSION: Stable exam. POS: PAUL
--- NOTE | 2017-01-09 16:59 | HP ---
PRIMARY CARE PHYSICIAN: Dr. Taz Piña. REASON FOR ADMISSION: Transfer from [facility] , to our hospital for COPD flare up and pneumonia. HISTORY OF PRESENT ILLNESS: A 71-year-old male who was recently admitted in our hospital on 12/23/2016. At that time, the patient was treated for healthcare associated pneumonia and COPD exacerbation. Patient had acute hypoxic respiratory failure that was improved. This patient also has a recent history of CABG. He had echocardiography during previous admission, which showed the EF 50-55%, moderate to severe mitral regurgitation and moderate to severe aortic regurgitation as well as moderate to severe tricuspid regurgitation and pulmonary hypertension. The patient was discharged on 12/26/2016. At that time, patient was given 10 days of antibiotic therapy with Omnicef and tapering doses of prednisone. The patient has finished antibiotic therapy 4 days ago and he also finished a steroid taper. After that, the patient started feeling bad for last couple of days he has increasing shortness of breath, productive of cough exactly similar 2 weeks ago. He was waking up during the night with increasing shortness of breath and cough. He was having gurgling sound in his chest and throat and he was not able to bring anything phlegm. He denies any hemoptysis. He denies any chest pain. He cannot breathe well and that was the only complains that is why he went to [facility]. The patient had chest x-ray over there and it showed bilateral infiltrate and upper lobe consolidation. His EKG which showed pacemaker rhythm. The patient had routine blood test over there, which was pretty much unremarkable. The patient was also hemodynamically stable and he was on normal saturation. He was afebrile. This patient was transferred to our hospital and we are admitting this patient for his increasing dyspnea. PAST MEDICAL HISTORY: History of esophageal cancer, status post esophagectomy, history of right subclavian MediPort placement, history of left subclavian pacemaker placement, history of multiple fracture repairs in past, hypothyroidism, COPD, dyslipidemia, coronary artery disease, valvular heart disease, chronic diastolic heart failure, moderate protein calorie malnutrition , history of sick sinus syndrome, required pacemaker placement. PAST SURGICAL HISTORY: Esophagectomy CABG, multiple fracture repairs, pacemaker placement, MediPort placement, cholecystectomy. PAST PSYCHIATRIC HISTORY: Anxiety and depression. SOCIAL HISTORY: Patient is . His is present at bedside. He drinks alcohol socially. He is a former smoker. He quit smoking a few years ago. He denies any other illicit drug abuse. He lives at home with his . FAMILY HISTORY: No strong family history of premature coronary artery disease, stroke or cancer. Mother also diagnosed in her old age with ovarian cancer. ALLERGIES: HEPARIN and PENICILLIN. CURRENT HOME MEDICATIONS: The patient is on ProAir HFA 2 puffs b.i.d. p.r.n., aspirin 325 mg p.o. daily, Lipitor 20 mg p.o. daily, Lasix 20 mg p.o. daily, [place] 1 tablet q.4 hourly p.r.n., DuoNeb q.4 hourly, Synthroid 125 mcg p.o. daily. ADDITIONAL INFORMATION: The patient does have a nebulizer machine at home, but he does not use oxygen at home. He is saying no cardiac rehabs/stress pulmonary rehab and he is getting exercise, most of the time after cardiac rehab he spends time in bed. He also has very poor appetite and primary care physician started on depression medicine, which was making him more sleepy and that is why patient was not taking that medication. EMERGENCY ROOM COURSE: Patient has received Zosyn and Levaquin, vancomycin, and DuoNeb therapy. REVIEW OF SYSTEMS: The following complete review of systems was negative, unless otherwise mentioned in the HPI or below: Constitutional: Weight loss or gain, ability to conduct usual activities. Skin: Rash, itching. Eyes: Double vision, pain. ENT/Mouth: Nose bleeding, neck stiffness, pain, tenderness. Cardiovascular: Palpitations, dyspnea on exertion, orthopnea. Respiratory: Shortness of breath, wheezing, cough, hemoptysis, fever or night sweats. Gastrointestinal: Poor appetite, abdominal pain, heartburn, nausea, vomiting, constipation, or diarrhea. Genitourinary: Urgency, frequency, dysuria, nocturia. Musculoskeletal: Pain, swelling. Neurologic/Psychiatric: Anxiety, depression. Allergy/Immunologic: Skin rash, bleeding tendency. Please see my HPI for pertinent positive and negative. All other review of systems reviewed and negative except as mentioned in the HPI. PHYSICAL EXAMINATION: VITAL SIGNS: Currently, blood pressure 122/72, pulse 101, respiratory rate 26, temperature 98.9, saturation 97% on room air, and weight 55.3 kilograms. GENERAL: Patient is malnourished, cachectic, in no obvious acute distress. HEAD: Normocephalic, atraumatic. EYES: Pupils round, reactive to light. Extraocular muscle intact. ENT: Oropharynx within normal limits. Moist mucous membranes. No oral lesions. No pharyngeal erythema. No exudate. NECK: Supple. Range of motion is normal. No meningeal signs of irritation. LUNGS: Coarse breath sounds noted, few rales noted. A few end expiratory wheezing heard. The patient is able to talk in full sentences. No accessory muscles of respiration in use. CARDIAC: S1, S2 regular, tachycardia, holosystolic murmur noted all over the precordium, no gallop, no rub. ABDOMEN: Soft, bowel sounds present, nontender, nondistended. No organomegaly , no mass, no suprapubic tenderness. BACK: Unremarkable, no CVA tenderness. EXTREMITIES: Upper extremity passive movements of all joints are normal. Lower extremities: No edema. Good peripheral pulsation. SKIN: No skin rash. HEMATOLOGICAL: No lymphadenopathy. PSYCHIATRIC: Normal affect. SIGNIFICANT LABS: Lactic acid 1.4. Urinalysis normal. Blood test done at [facility], creatinine 1.1, glucose 108, lactic acid 1.1, calcium 8.2, bilirubin 0.6, AST 26, ALT 47, alkaline phosphatase 116, CK 79, CK- MB 5.2, troponin I 0.02. BNP 781, protein 6.5, albumin 3.2, globulin 3.3. WBC 6.1, hemoglobin 9.6, platelets 171,000. Blood culture was obtained. EKG showing pacemaker rhythm. Chest x-ray showing bilateral infiltrates, upper lobe consolidation. ASSESSMENT AND PLAN: 1. Acute on chronic obstructive pulmonary disease exacerbation. At this point , the patient has very mild chronic obstructive pulmonary disease flare-up. He is on room air. His saturation is normal. He does not have any accessory muscles of respiration in use. He does not have any elevated white count or lactic acidosis. At this point, we will keep this patient in the hospital for observation. We will consult Pulmonary for their opinion. We will treat him with a DuoNeb q.4 hourly, Dulera two puffs inhalation b.i.d., Solu-Medrol 40 mg IV q.6 hourly, Mucinex 600 mg 4 times daily, empiric antibiotic therapy with levofloxacin 500 mg IV daily. His influenza screen is negative. 2. Pneumonia. I looked at his chest x-ray comparing to old x-ray does not see any new finding. This patient does have chronic lung changes; and at this point , the patient has been given 10 days antibiotic therapy recently in the hospital and after discharge as well. At this point, we will continue with the Levaquin therapy for another few days. We will consult Pulmonary for their opinion whether this patient needs to be in the hospital for longer or not. 3. Valvular heart disease. This patient has moderate to severe mitral tricuspid pulmonary regurgitation and he also has elevated BNP, but this patient does not have any fluid congestion. He does not have any edema, does not suspect any acute congestive heart failure, but he does have chronic diastolic heart failure which appears to be compensated and euvolemic. 4. Protein calorie malnutrition, moderate. Patient is not eating and he has very poor appetite. We will start Remeron to stimulate his appetite and nutritional supplements will be given. 5. Coronary artery disease, required coronary artery bypass graft. We will continue the aspirin 325 mg p.o. daily, Lipitor 20 mg p.o. at bedtime. 6. Hypothyroidism. We will continue Synthroid 125 mcg p.o. daily. We will check TSH. 7. Anxiety and depression. We are starting Remeron 7.5 mg p.o. at bedtime. 8. Deep venous thrombosis prophylaxis not needed because we are expecting discharge in 24 hours. 9. Gastrointestinal prophylaxis, Protonix 40 mg p.o. daily. CODE STATUS: Discussed with the patient and patient's at bedside and they wanted to be a FULL CODE. The patient's is surrogate decision maker. DISPOSITION AND PLAN: Based on clinical course and pulmonary recommendations. MTDD
[2017-01-09] MEDS ORDERED: Sterile Water 10 ML ONE (18:12)
[2017-01-09] MEDS: Budesonide 0.5 MG/2 ML NEB INH SCH (18:24)
[2017-01-09] MEDS: Atorvastatin Calcium 20 MG TAB PO SCH (21:05)
[2017-01-09] MEDS: guaiFENesin ER 600 MG TAB PO SCH (21:05)
[2017-01-09] MEDS: Mirtazapine 15 MG TAB PO SCH (21:05)
[2017-01-10 05:48] LABS: ALT (SGPT) 26 U/L (8-55); AST (SGOT) 20 U/L (5-34); Alkaline Phosphatase 126 U/L (40-150); Anion Gap 10 mmol/L (10-20); BUN (Urea Nitrogen) 22 mg/dL (8.4-25.7); Bilirubin, Total 0.3 mg/dL (0.2-1.2); Calc. Creatinine Clearance 47 mL/min (70-130); Calcium 8.6 mg/dL (7.8-10.44); Carbon Dioxide 27 mmol/L (23-31); Chloride 105 mmol/L (98-107); Estimated GFR-MDRD 73; Globulin 3.1 g/dL (2.4-3.5); Protein, Total 6.2 g/dL (5.8-8.1)
[2017-01-10] MEDS: Levothyroxine Sodium 125 MCG TAB PO SCH (06:15)
[2017-01-10] MEDS: Budesonide 0.5 MG/2 ML NEB INH SCH ×2 (06:53→18:28)
[2017-01-10] MEDS: Aspirin 325 MG TAB PO SCH (08:43)
[2017-01-10] MEDS: guaiFENesin ER 600 MG TAB PO SCH ×2 (08:44→20:24)
--- NOTE | 2017-01-10 08:57 | PDOC.PN ---
- Subjective Encounter Start Date: 01/10/17 Encounter Start Time: 08:55 Subjective: SOB improving -: No cp/f/c/n/v - Objective Resuscitation Status: Resuscitation Status FULL:Full Resuscitation MAR Reviewed: Yes Vital Signs & Weight: Vital Signs (12 hours) Temp Pulse Resp BP BP Pulse Ox 01/10/17 07:42 98.3 F 97 16 01/10/17 07:35 98.2 F 104 H 18 93/61 97 01/10/17 06:56 98 01/10/17 06:53 97 16 01/10/17 05:01 98.1 F 99 20 94/59 L 96 01/10/17 01:36 104 H 18 98 01/09/17 23:15 97.7 F 113 H 20 118/65 95 01/09/17 21:38 102 H 18 97 01/09/17 21:05 22 H 97 Weight Weight 110 lb I&O: 01/09/17 01/10/17 01/11/17 06:59 06:59 06:59 Intake Total 700 Output Total 425 300 Balance 275 -300 Result Diagrams: 01/10/17 04:37 Phys Exam - Physical Examination Constitutional: NAD HEENT: PERRLA, moist MMs Neck: no nodes, no JVD diminished throughout Gastrointestinal: soft, no distention Neurological: non-focal, moves all 4 limbs Psychiatric: normal affect Skin: no rash, normal turgor Dx/Plan (1) COPD exacerbation Code(s): J44.1 - CHRONIC OBSTRUCTIVE PULMONARY DISEASE W (ACUTE) EXACERBATION Status: Acute (2) CAD (coronary artery disease) Code(s): I25.10 - ATHSCL HEART DISEASE OF [place] CORONARY ARTERY W/O ANG PCTRS Status: Chronic (3) Dyslipidemia Code(s): E78.5 - HYPERLIPIDEMIA, UNSPECIFIED Status: Chronic (4) Hypothyroidism Code(s): E03.9 - HYPOTHYROIDISM, UNSPECIFIED Status: Chronic (5) S/P CABG (coronary artery bypass graft) Code(s): Z95.1 - PRESENCE OF AORTOCORONARY BYPASS GRAFT Status: Chronic - Plan COPD Exacerbation and Possible PNA * continue breathing treatments, Levaquin and steroids * O2 prn * Pulmonology consulted * monitor pulse ox * check labs in AM CAD s/p CABG * continue cardioprudent meds * monitor for chest pain Dispo: continue inpt.
[2017-01-10] MEDS ORDERED: Furosemide 20 MG TAB PO SCH (09:00)
[2017-01-10] MEDS: Mirtazapine 15 MG TAB PO SCH (20:22)
[2017-01-10] MEDS: Atorvastatin Calcium 20 MG TAB PO SCH (20:24)
[2017-01-11] MEDS: Levothyroxine Sodium 125 MCG TAB PO SCH (05:02)
[2017-01-11 05:09] LABS: #Lymphocytes 0.3 thou/uL (1.20-3.40); #Monocytes 0.3 thou/uL (0.11-0.59); #Neutrophils 12.2 thou/uL (1.40-6.50); %Basophils 0.1 % (0.0-1.0); %Eosinophils 0.1 % (0.0-10.0); %Lymphocytes 2.6 % (21.0-51.0); %Monocytes 2.3 % (0.0-10.0); Hematocrit 30.8 % (42.0-52.0); Mean Platelet Volume 7.6 fL (7.4-10.4); Red Blood Cell (RBC) Count 3.22 mill/uL (4.70-6.10); White Blood Cell (WBC) Count 12.9 thou/uL (4.8-10.8)
[2017-01-11 05:30] LABS: Anion Gap 10 mmol/L (10-20); BUN (Urea Nitrogen) 22 mg/dL (8.4-25.7); Calc. Creatinine Clearance 48 mL/min (70-130); Carbon Dioxide 28 mmol/L (23-31); Chloride 106 mmol/L (98-107); Estimated GFR-MDRD 74; Magnesium 2.2 mg/dL (1.6-2.6)
[2017-01-11] MEDS: Budesonide 0.5 MG/2 ML NEB INH SCH ×2 (07:02→18:46)
--- NOTE | 2017-01-11 08:03 | PDOC.PN ---
- Subjective Encounter Start Date: 01/11/17 Encounter Start Time: 07:59 Subjective: SOB worse today -: No f/c -: No cp/palpitations - Objective Resuscitation Status: Resuscitation Status FULL:Full Resuscitation MAR Reviewed: Yes Vital Signs & Weight: Vital Signs (12 hours) Temp Pulse Resp BP Pulse Ox 01/11/17 07:40 97.5 F L 108 H 18 01/11/17 07:39 97.5 F L 108 H 18 108/63 95 01/11/17 07:02 107 H 20 96 01/11/17 06:59 107 H 20 96 01/11/17 05:02 97.7 F 106 H 20 99/67 94 L 01/11/17 02:22 104 H 20 97 01/10/17 23:24 107 H 20 101/56 L 95 01/10/17 21:37 107 H 20 97 01/10/17 20:00 97.7 F 113 H 20 Weight Weight 90 lb 1.6 oz I&O: 01/10/17 01/11/17 01/12/17 06:59 06:59 06:59 Intake Total 700 580 Output Total 425 765 Balance 275 -185 Result Diagrams: 01/11/17 05:01 01/11/17 05:01 Phys Exam - Physical Examination Constitutional: NAD HEENT: PERRLA, moist MMs Neck: no nodes, no JVD b/l coarse, wheezing throughout Cardiovascular: RRR, no significant murmur Gastrointestinal: soft, non-tender, positive bowel sounds Psychiatric: normal affect Skin: no rash, normal turgor Dx/Plan (1) COPD exacerbation Code(s): J44.1 - CHRONIC OBSTRUCTIVE PULMONARY DISEASE W (ACUTE) EXACERBATION Status: Acute (2) CAD (coronary artery disease) Code(s): I25.10 - ATHSCL HEART DISEASE OF [place] CORONARY ARTERY W/O ANG PCTRS Status: Chronic (3) Dyslipidemia Code(s): E78.5 - HYPERLIPIDEMIA, UNSPECIFIED Status: Chronic (4) Hypothyroidism Code(s): E03.9 - HYPOTHYROIDISM, UNSPECIFIED Status: Chronic (5) S/P CABG (coronary artery bypass graft) Code(s): Z95.1 - PRESENCE OF AORTOCORONARY BYPASS GRAFT Status: Chronic - Plan COPD Exacerbation and Possible PNA * continue breathing treatments, Levaquin and steroids * O2 prn * change lasix to 20mg IV daily (stop PO) * check CXR * monitor pulse ox * check labs in AM CAD s/p CABG * continue cardioprudent meds * monitor for chest pain Dispo: continue inpt (change to inpt).
[2017-01-11] MEDS: guaiFENesin ER 600 MG TAB PO SCH ×2 (08:36→20:39)
[2017-01-11] MEDS: Aspirin 325 MG TAB PO SCH (08:36)
[2017-01-11] MEDS: Furosemide 20 MG/2 ML VIAL SLOW IVP SCH (08:36)
--- NOTE | 2017-01-11 09:54 | RAD ---
CHEST 2 VIEWS: Date: 01/11/17 HISTORY: Pneumonia. COMPARISON: Chest 2 views dated 01/09/17. CT chest from 2016. FINDINGS: There is similar appearance to the predominantly peripheral opacities throughout the lungs involving the right upper lobe, middle lobe, right middle lobe, and lingula. There is a focal area of pulmona ry herniation through the right 5th intercostal space. The confluence of opacities have increased from 2016. Small effusions. IMPRESSION: Similar appearance of the peripheral opacities in right middle lobe, lingula, and both upper lobes w ith small effusions. Follow-up CT of the chest is recommended. This could be due to aspiration or pn eumonia. Organizing pneumonia is also within the differential. Malignancy cannot be excluded. POS: MED
[2017-01-11 12:53] VITALS: BMI 17.9
--- NOTE | 2017-01-11 14:14 | CON ---
DATE OF CONSULTATION: 01/11/2017 HISTORY OF PRESENT ILLNESS: Han Colón is a 71-year-old gentleman who has seen Dr. Chelsea kenney times, admitted to the hospital with chronic obstructive pulmonary disease exacerbation. He is co ughing a grossly yellow sputum. He was given antibiotics since then and steroids. This morning he says he is somewhat better. His primary care doctor is in [place]. PAST MEDICAL HISTORY: 1. Chronic obstructive pulmonary disease. 2. Former smoker. 3. Hypothyroidism. PAST SURGICAL HISTORY: 1. Coronary artery bypass graft. 2. Carcinoma of the esophagus. HOME MEDICATIONS: Medrol Dosepak, Synthroid 125. He said he had a Symbicort inhaler, it is unclear if he is using that. Lipitor 20, Lasix 20. ALLERGIES: PENICILLIN. REVIEW OF SYSTEMS: Otherwise negative. PHYSICAL EXAMINATION: VITAL SIGNS: Blood pressure 108/63, sats 96%, respirations 20. CHEST: Chest reveals extensive rhonchi and wheezing. CARDIAC: Normal S1 and S2. ABDOMEN: Soft, no masses. LABORATORY: White count 12,000, H\T\H 9 and 30, platelet count 41. Electrolytes are normal. X-ray shows extensive bilateral lung infiltrates. Most of it appears to be chronic. IMPRESSION: 1. Bilateral lung infiltrates, been present for a period of time. 2. Chronic obstructive pulmonary disease exacerbation. 3. Bronchitis. PLAN: I have added Dulera to his present neb treatment. Continue steroids. Continue neb treatment s. Continue Mucinex. Will notify Dr. Tran.
[2017-01-11] MEDS: Mometasone/Formoterol 120 PUFF INHALER INH SCH (18:45)
[2017-01-11] MEDS: Atorvastatin Calcium 20 MG TAB PO SCH (20:39)
[2017-01-11] MEDS: Mirtazapine 15 MG TAB PO SCH (20:40)
[2017-01-12] MEDS: Levothyroxine Sodium 125 MCG TAB PO SCH (05:45)
[2017-01-12 06:29] LABS: #Lymphocytes 0.4 thou/uL (1.20-3.40); #Monocytes 0.4 thou/uL (0.11-0.59); #Neutrophils 10.2 thou/uL (1.40-6.50); %Eosinophils 0.1 % (0.0-10.0); %Lymphocytes 3.2 % (21.0-51.0); %Monocytes 3.3 % (0.0-10.0); Hematocrit 30.5 % (42.0-52.0); Red Blood Cell (RBC) Count 3.16 mill/uL (4.70-6.10)
[2017-01-12] MEDS: Budesonide 0.5 MG/2 ML NEB INH SCH ×2 (06:49→18:34)
[2017-01-12] MEDS: Mometasone/Formoterol 120 PUFF INHALER INH SCH ×2 (06:51→18:35)
[2017-01-12 06:52] LABS: Anion Gap 9 mmol/L (10-20); BUN (Urea Nitrogen) 28 mg/dL (8.4-25.7); Calc. Creatinine Clearance 51 mL/min (70-130); Calcium 8.6 mg/dL (7.8-10.44); Carbon Dioxide 27 mmol/L (23-31); Chloride 107 mmol/L (98-107); Estimated GFR-MDRD 69; Magnesium 2.2 mg/dL (1.6-2.6)
--- NOTE | 2017-01-12 07:58 | PDOC.PN ---
- Subjective Encounter Start Date: 01/12/17 Encounter Start Time: 07:56 Subjective: Breathing a little better today -: No f/c -: No n/v/cp/MCCRAY - Objective Resuscitation Status: Resuscitation Status FULL:Full Resuscitation MAR Reviewed: Yes Vital Signs & Weight: Vital Signs (12 hours) Temp Pulse Resp BP Pulse Ox 01/12/17 06:49 100 16 01/12/17 04:00 98.3 F 107 H 19 110/62 94 L 01/12/17 01:31 108 H 18 95 01/12/17 00:50 19 01/11/17 22:26 111 H 18 96 01/11/17 20:40 98 F 110 H 20 122/62 93 L 01/11/17 20:00 98 F 110 H 20 93 L Weight Admit Weight 110 lb Weight 124 lb 11.2 oz I&O: 01/11/17 01/12/17 01/13/17 06:59 06:59 06:59 Intake Total 580 1900 Output Total 765 500 Balance -185 1400 Result Diagrams: 01/12/17 05:33 01/12/17 05:33 Phys Exam - Physical Examination Constitutional: NAD HEENT: PERRLA, moist MMs Neck: no nodes, no JVD Respiratory: no wheezing b/l coarse Cardiovascular: RRR, no significant murmur Gastrointestinal: soft, non-tender, positive bowel sounds Neurological: non-focal, moves all 4 limbs Skin: no rash, normal turgor Dx/Plan (1) COPD exacerbation Code(s): J44.1 - CHRONIC OBSTRUCTIVE PULMONARY DISEASE W (ACUTE) EXACERBATION Status: Acute (2) CAD (coronary artery disease) Code(s): I25.10 - ATHSCL HEART DISEASE OF [place] CORONARY ARTERY W/O ANG PCTRS Status: Chronic (3) Dyslipidemia Code(s): E78.5 - HYPERLIPIDEMIA, UNSPECIFIED Status: Chronic (4) Hypothyroidism Code(s): E03.9 - HYPOTHYROIDISM, UNSPECIFIED Status: Chronic (5) S/P CABG (coronary artery bypass graft) Code(s): Z95.1 - PRESENCE OF AORTOCORONARY BYPASS GRAFT Status: Chronic - Plan COPD Exacerbation with chronic bilateral lung infiltrates * continue breathing treatments, Levaquin and steroids * O2 prn * changed lasix to 20mg IV daily (stopped PO) * appreciate pulm input * monitor pulse ox * check labs in AM CAD s/p CABG * continue cardioprudent meds * monitor for chest pain Dispo: continue inpt (change to inpt).
[2017-01-12] MEDS: guaiFENesin ER 600 MG TAB PO SCH ×2 (10:30→20:35)
[2017-01-12] MEDS: Furosemide 20 MG/2 ML VIAL SLOW IVP SCH (10:30)
[2017-01-12] MEDS: Aspirin 325 MG TAB PO SCH (10:30)
--- NOTE | 2017-01-12 13:26 | CON ---
DATE OF CONSULTATION: 01/12/2017 HISTORY OF PRESENT ILLNESS: Mr. Colón is a 71-year-old male. He has been seen by 3 of the 4 physici ans in my group frequently while he has been in and out of the hospital. He presented with a cough, chest congestion, and shortness of breath. He says he feels much better than he felt on presentati on. His chest radiograph has been reviewed and compared to his last films when he was in the hospital, h is bilateral infiltrates are improving. PAST MEDICAL HISTORY: Remarkable for esophageal carcinoma with a curative surgery 20 years ago. His tells me that he had anger/temper management issues at home and also has had poor p.o. inta ke. He was started on Remeron, which I would think would work well on him, but his says he was sleeping all day. Even on the half dose he was sleeping all day or on the couch, he says he is act sully, but when one picks apart his daily activities he really is not doing much at home. PHYSICAL EXAMINATION: GENERAL: He is in no distress, he is talking in complete sentences. VITAL SIGNS: He is afebrile, heart rate 100, respiratory rate 16, oximetry is 94%. Blood pressure 119/70. LUNGS: Remarkable for diffuse coarse wheezes not using accessory muscles. HEART: Regular rhythm. ABDOMEN: Soft. LABORATORY: White count 11, hemoglobin 9.4, platelets 154,000. Sodium 139, potassium 4.1, chloride 107, bicarbonate 27, BUN 28, creatinine 1.05. IMPRESSION: 1. Chronic obstructive pulmonary disease exacerbation. 2. Bilateral infiltrates that are most likely secondary to his recent pneumonia and not a new proce ss. His radiograph is improving slowly as expected with his underlying lung disease. 3. ? Depression, anxiety temper issues and poor p.o. intake at home. I will switch him off the Lenora arnaldo since his says he is not tolerating it and start him on some Zoloft and see how he does wit h this. Start with 25 mg dose tonight, perhaps increase it to 50 tomorrow night, realizing that the effect will not be fully apparently for 3-4 weeks. I have encouraged him to get out of bed and sit in the chair today. Physical therapy needs to be wo rking with him. I will follow with the other physicians caring for Mr. Colón.
[2017-01-12] MEDS: Atorvastatin Calcium 20 MG TAB PO SCH (20:36)
[2017-01-12] MEDS ORDERED: Sterile Water 10 ML ONE (23:57)
[2017-01-13] MEDS: Levothyroxine Sodium 125 MCG TAB PO SCH (05:59)
[2017-01-13] MEDS: Mometasone/Formoterol 120 PUFF INHALER INH SCH ×2 (06:41→18:35)
[2017-01-13] MEDS: Budesonide 0.5 MG/2 ML NEB INH SCH ×2 (06:41→18:35)
[2017-01-13 06:45] LABS: #Lymphocytes 0.3 thou/uL (1.20-3.40); #Monocytes 0.5 thou/uL (0.11-0.59); #Neutrophils 9.8 thou/uL (1.40-6.50); %Basophils 0.1 % (0.0-1.0); %Lymphocytes 2.8 % (21.0-51.0); %Monocytes 4.8 % (0.0-10.0); Hematocrit 29.2 % (42.0-52.0); Mean Platelet Volume 8.5 fL (7.4-10.4); Red Blood Cell (RBC) Count 3.05 mill/uL (4.70-6.10); White Blood Cell (WBC) Count 10.7 thou/uL (4.8-10.8)
[2017-01-13 07:04] LABS: Anion Gap 8 mmol/L (10-20); BUN (Urea Nitrogen) 35 mg/dL (8.4-25.7); Calc. Creatinine Clearance 53 mL/min (70-130); Calcium 8.4 mg/dL (7.8-10.44); Carbon Dioxide 30 mmol/L (23-31); Chloride 105 mmol/L (98-107); Estimated GFR-MDRD 73; Magnesium 2.4 mg/dL (1.6-2.6)
--- NOTE | 2017-01-13 07:44 | PDOC.PN ---
- Subjective Encounter Start Date: 01/13/17 Encounter Start Time: 07:42 Subjective: Insomnia -: Generalized weakness -: SOB stable - Objective Resuscitation Status: Resuscitation Status FULL:Full Resuscitation MAR Reviewed: Yes Vital Signs & Weight: Vital Signs (12 hours) Temp Pulse Resp BP Pulse Ox 01/13/17 06:42 110 H 14 01/13/17 04:12 92 L 01/13/17 04:00 98.2 F 108 H 20 102/57 L 92 L 01/13/17 02:38 109 H 14 97 01/12/17 22:25 101 H 14 96 01/12/17 20:31 98.2 F 108 H 20 106/58 L 96 Weight Admit Weight 110 lb Weight 124 lb I&O: 01/12/17 01/13/17 01/14/17 06:59 06:59 06:59 Intake Total 1900 1561 Output Total 500 1225 Balance 1400 336 Result Diagrams: 01/13/17 05:25 01/13/17 05:25 Phys Exam - Physical Examination Constitutional: NAD HEENT: PERRLA, moist MMs Neck: no nodes, no JVD Respiratory: no wheezing b/l coarse Cardiovascular: RRR, no significant murmur Gastrointestinal: soft, non-tender, positive bowel sounds Neurological: non-focal, moves all 4 limbs Skin: no rash, normal turgor Dx/Plan (1) COPD exacerbation Code(s): J44.1 - CHRONIC OBSTRUCTIVE PULMONARY DISEASE W (ACUTE) EXACERBATION Status: Acute (2) CAD (coronary artery disease) Code(s): I25.10 - ATHSCL HEART DISEASE OF [place] CORONARY ARTERY W/O ANG PCTRS Status: Chronic (3) Dyslipidemia Code(s): E78.5 - HYPERLIPIDEMIA, UNSPECIFIED Status: Chronic (4) Hypothyroidism Code(s): E03.9 - HYPOTHYROIDISM, UNSPECIFIED Status: Chronic (5) S/P CABG (coronary artery bypass graft) Code(s): Z95.1 - PRESENCE OF AORTOCORONARY BYPASS GRAFT Status: Chronic - Plan COPD Exacerbation with chronic bilateral lung infiltrates (resolving previous PNA - no new PNA) * continue breathing treatments, Levaquin and steroids * O2 prn * changed lasix to 20mg IV daily (stopped PO) * appreciate pulm input * monitor pulse ox * check labs in AM CAD s/p CABG * continue cardioprudent meds * monitor for chest pain Depression * SSRI started Physical Debility * consult PT/OT Insomnia * start prn ambien QHS Dispo: continue inpt
[2017-01-13] MEDS ORDERED: Zolpidem Tartrate 5 MG TAB PO PRN (07:48)
[2017-01-13] MEDS: Aspirin 325 MG TAB PO SCH (09:35)
[2017-01-13] MEDS: Benzonatate 100 MG CAP PO PRN ×2 (09:35→20:16)
[2017-01-13] MEDS: Furosemide 20 MG/2 ML VIAL SLOW IVP SCH (09:35)
[2017-01-13] MEDS: guaiFENesin ER 600 MG TAB PO SCH ×2 (09:35→20:16)
[2017-01-13] MEDS ORDERED: PROVENTIL INHALER 6.7 G (200 INHALATIONS) INH PRN (12:13)
[2017-01-13] MEDS ORDERED: Temazepam 15 MG CAP PO PRN (12:14)
[2017-01-13] MEDS ORDERED: predniSONE 20 MG TAB PO SCH (12:30)
--- NOTE | 2017-01-13 14:46 | PRG ---
DATE OF SERVICE: 01/13/2017 SUBJECTIVE: Mr. Han latham is feeling little bit better today. He is still quite wheezy on exam. OBJECTIVE: VITAL SIGNS: He is afebrile. Heart rate is 100, respiratory rate is in the teens, oximetry is 95% and blood pressure 100/62. LUNGS: Remarkable for diffuse equal wheezes. He is slightly improved compared to yesterday. HEART: Regular rhythm. ABDOMEN: Soft. LABORATORY DATA: White count 10.7, hemoglobin 9.3 and platelets 157. Sodium 139, potassium 4, chlo ride 105, bicarbonate 30, BUN 35 and creatinine 1. IMPRESSION: 1. Chronic obstructive pulmonary disease exacerbation. 2. Recent pneumonia with an improved radiograph. 3. ?coexisting bronchitis. PLAN: Switch him to p.o. meds. We will get him an albuterol inhaler to bedside. He likes having t his at home. We will increase physical activity. He may be able to go home in 24-48 hours hopefull y unless there is another reason that may pops up, then we would keep him in the hospital.
[2017-01-13] MEDS: Atorvastatin Calcium 20 MG TAB PO SCH (20:16)
[2017-01-14 05:27] LABS: #Lymphocytes 0.4 thou/uL (1.20-3.40); #Monocytes 0.4 thou/uL (0.11-0.59); #Neutrophils 6.7 thou/uL (1.40-6.50); %Eosinophils 0.1 % (0.0-10.0); %Lymphocytes 5.8 % (21.0-51.0); %Monocytes 5.8 % (0.0-10.0); Mean Platelet Volume 8.3 fL (7.4-10.4); Red Blood Cell (RBC) Count 3.26 mill/uL (4.70-6.10); White Blood Cell (WBC) Count 7.5 thou/uL (4.8-10.8)
[2017-01-14 05:52] LABS: Anion Gap 10 mmol/L (10-20); BUN (Urea Nitrogen) 31 mg/dL (8.4-25.7); Calc. Creatinine Clearance 51 mL/min (70-130); Calcium 8.5 mg/dL (7.8-10.44); Carbon Dioxide 29 mmol/L (23-31); Chloride 102 mmol/L (98-107); Estimated GFR-MDRD 73; Magnesium 2.1 mg/dL (1.6-2.6)
[2017-01-14] MEDS: Benzonatate 100 MG CAP PO PRN (06:10)
[2017-01-14] MEDS: Levothyroxine Sodium 125 MCG TAB PO SCH (06:10)
[2017-01-14] MEDS: Budesonide 0.5 MG/2 ML NEB INH SCH (06:20)
[2017-01-14] MEDS: Mometasone/Formoterol 120 PUFF INHALER INH SCH (06:25)
[2017-01-14] MEDS ORDERED: predniSONE 20 MG TAB PO SCH (08:00)
[2017-01-14] MEDS: guaiFENesin ER 600 MG TAB PO SCH (09:20)
[2017-01-14] MEDS: Furosemide 20 MG/2 ML VIAL SLOW IVP SCH (09:20)
[2017-01-14] MEDS: Aspirin 325 MG TAB PO SCH (09:20)
[2017-01-14 12:18] VITALS: TEMP 97.5
[2017-01-14 14:20] VITALS: BP 107/68
--- NOTE | 2017-01-14 16:08 | DIS ---
DATE OF ADMISSION: 01/09/2017 DATE OF DISCHARGE: 01/14/2017 DISCHARGE DIAGNOSES: 1. Acute exacerbation of chronic obstructive pulmonary disease. 2. Recent community acquired pneumonia, improving. New community-acquired pneumonia or healthcare- associated pneumonia not ruled out and not present on admission. 3. Presumed chronic bronchitis. 4. Physical debilitation. 5. History of coronary artery disease. 6. Hyperlipidemia. 7. Hypothyroidism. 8. Status post coronary artery bypass grafting. 9. Depression. 10. Insomnia. CONSULTATIONS: Pulmonary medicine, Dr. Terrazas, on 01/11/2017, followed by Dr. Iverson 01/12/2017 to . HISTORY AND PHYSICAL: Mr. Colón is a pleasant 71-year-old white male, who sees Dr. Taz Piña as a primary doctor. The patient was transferred from [place] for acute exacerbation of COPD and possible pneumonia. He was recently here in the hospital on end of November. He was treated for healthcare-associated pneumonia and COPD exacerbation with acute hypoxic respiratory failure that had improved. An echo a that time showed an ejection fraction of 50%-55% with qhihrevs-dk-wskswm mitral regurgitation and oaemfucd-uk-tldoqu aortic insufficiency and hydorhon-pk-zskcma tricuspid regurg with pulmonary hyper tension. He went home 3 days later on 12/26/2016 on 10 days of antibiotics with Omnicef and taperin g doses of prednisone. He just finished the antibiotics and was finishing the 10-day steroid taper, but had increasing shortness of breath and productive cough, just like 2 weeks prior. He went to [facility] Emergency Department. Chest x-ray showed bilateral infiltrates with upper lobe cons olidation, and he was subsequently transferred here for further evaluation. HOSPITAL COURSE: The patient was seen and admitted by Dr. Bernardo on 01/09/2017. He was continued on IV antibiotics with levofloxacin. Pulmonary was consulted for further recommendations. He was c ontinued on his home medications, nebulizer treatments, steroids, and home medications. The patient was seen and examined. Overnight, he did fairly well, and by the morning of 01/10/2017, was breathing slightly better. He was continued on his breathing treatments, levofloxacin, and IV steroids, and using oxygen as needed. Pulmonary consultation was pending and labs remained stable. On 01/11/2017, patient was seen by Dr. Terrazas for pulmonary consultation. He felt that the infiltrate s were present for a long period of time and was actually improved from prior. Dulera was added to his neb treatments. He was continued on IV steroids and neb treatments and Mucinex. Dr. Chelsea mathis d Dr. Iverson were notified for followup. By 01/12/2017, the patient was continuing to improve. Dr. Iverson concurred that his infiltrates were actually improved from prior and they were actually resolving. He was continued on home medication s, and was started on Zoloft for positive depression with some anxiety. He was continued on the afo rementioned treatments without any difficulties. On 01/13/2017, he was feeling better and breathing better. He was still wheezing. His vitals remai oleksandr stable. He was converted over to oral antibiotics and steroids. He was continued on his neb tr eatments, Dulera, budesonide, and albuterol MDI p.r.n. By today, 01/14/2017, he was weaned off of oxygen, his lungs were clear, he had no wheezing and was stable for discharge with outpatient followup. PHYSICAL EXAMINATION: The patient was seen and examined on the day of discharge. Discharge plan and disposition were discussed with the patient [id number] at the bedside. DISCHARGE MEDICATIONS: 1. Albuterol HFA 2 puffs b.i.d. p.r.n. 2. Aspirin 325 mg daily. 3. Atorvastatin 20 mg p.o. at bedtime. 4. Benzonatate 100 mg p.o. q.4 hours p.r.n. cough. 5. Budesonide nebulizers 0.5 mg b.i.d. nebulized. 6. Lasix 20 mg daily. 7. DuoNeb 3 mL q.4 h. 8. Levofloxacin 500 mg daily for 7 more days. 9. Levothyroxine 125 mcg daily. 10. Imodium 2 mg p.r.n. 11. Mometasone/formoterol 200/5 mcg 2 puffs b.i.d. 12. Zoloft 50 mg p.o. daily. Prescription provided by Dr. Iverson. 13. Restoril 15 mg p.o. at bedtime p.r.n., insomnia. 14. Guaifenesin ER 1200 mg p.o. b.i.d. 15. Prednisone 40 mg daily for 4 days, then to 20 mg daily until followup. DISCHARGE CONDITION: Stable. DISPOSITION: Being discharged home via private vehicle. FOLLOWUP APPOINTMENTS: 1. Primary care physician within a week. 2. Dr. Iverson in the pulmonary clinic in 2-3 weeks. Patient will return to the emergency department for worsening symptoms.
--- NOTE | 2017-01-14 21:22 | PRG ---
DATE OF SERVICE: 01/14/2017 SUBJECTIVE: Mr. Colón did well overnight. He says he feels great. He is ambulating. He says he galloway s minimal dyspnea. He is still wheezing. I am not sure what his baseline exam is and he may have w heezes until his infiltrates clear up. OBJECTIVE: VITAL SIGNS: He is afebrile, heart rate is 106, respiratory rate 16, oximetry is 95%. I think it is reasonable to discharge him. I have written for prednisone taper and a week of Levaqu in. I have given his a prescription for a nebulized budesonide to use twice a day. I explaine d that will make the nebulizer treatments last much longer, and he will just have to put up with peter woods. He will start exercising once he gets home. I have written for 50 mg of Zoloft to take at bedti me and 15 mg of Restoril since he slept well last night for the first time. I suspect as long as he is on prednisone, he will have trouble sleeping, and he says he felt much more energetic when he wo ke up this morning. I will see him in followup in the office in 2 weeks.
== END 2017-01-14 16:21 | disposition home or self-care (01) | DRG 190 ==
LOC: ERS 12:18 → 2SW 16:06 → OBSVTOIN 16:06 → 2NO 01-11 08:09
PROVIDERS: ADMIT Internal Medicine; ATTEND Internal Medicine
DX: J44.0 Chronic obstructive pulmonary disease with (acute) lower respiratory infection (principal); J18.9 Pneumonia, unspecified organism; E44.0 Moderate protein-calorie malnutrition; I27.20 Pulmonary hypertension, unspecified; I50.32 Chronic diastolic (congestive) heart failure; Z68.1 Body mass index [BMI] 19.9 or less, adult; I25.10 Atherosclerotic heart disease of native coronary artery without angina pectoris; I08.3 Combined rheumatic disorders of mitral, aortic and tricuspid valves; J44.1 Chronic obstructive pulmonary disease with (acute) exacerbation; E03.9 Hypothyroidism, unspecified; E78.5 Hyperlipidemia, unspecified; F32.9 Major depressive disorder, single episode, unspecified; F41.9 Anxiety disorder, unspecified; G47.00 Insomnia, unspecified; Z95.1 Presence of aortocoronary bypass graft; Z85.01 Personal history of malignant neoplasm of esophagus; Z87.81 Personal history of (healed) traumatic fracture; Z88.0 Allergy status to penicillin; Z88.8 Allergy status to other drugs, medicaments and biological substances; Z87.891 Personal history of nicotine dependence
CPT/HCPCS: 36415; 71020; 80048; 80053; 81003; 83605; 83735; 84443; 85025; 87086; 93798; 94640; 94664; 96365; 96367; A4216; G8978-GP-CH; G8979-GP-CH; G8980-GP-CH; G8987-GO-CH; G8988-GO-CH; G8989-GO-CH; J1940; J1956; J2543; J2920; J3370; J7506; J7620; J7626

== ENCOUNTER 2017-02-08 10:19 | Outpatient (CLI) | payer MEDICARE ==
--- NOTE | 2017-02-08 13:30 | RAD ---
CHEST 2 VIEWS: COMPARISON: 01/11/17 study. HISTORY: Dyspnea. FINDINGS: Heart size is within normal limits. There are postop sternotomy changes with a pacemaker. The pare nchymal changes in the right mid and lower lung field show some minimal improvement. There is more definite improvement to some of the changes in the left mid lung field. IMPRESSION: Improving bilateral patchy infiltrates. Severe chronic lung change. POS: [facility]
== END 2017-02-08 10:20 | disposition home or self-care (01) ==
LOC: RAD 10:19
PROVIDERS: ATTEND Internal Medicine Critical Care Medicine
DX: R06.00 Dyspnea, unspecified (principal); R91.8 Other nonspecific abnormal finding of lung field
CPT/HCPCS: 71020

== ENCOUNTER 2017-04-27 13:59 | Inpatient (IN) | payer MEDICARE ==
[2017-04-27] MEDS: Sodium Chloride 0.45% 1,000 ML IV SCH (15:23)
[2017-04-27] MEDS ORDERED: Piperacillin/Tazobactam 3.375 GM in Sodium Chloride 0.9% 100 ML IVPB SCH (17:00)
[2017-04-27] MEDS: Sodium Chloride 0.65% Nasal 44 ML BOT EA NARE SCH ×2 (17:23→21:54)
[2017-04-27 17:28] LABS: #Eosinphils 0.1 thou/uL (0.0-0.7); #Lymphocytes 0.9 thou/uL (1.20-3.40); #Monocytes 0.9 thou/uL (0.11-0.59); #Neutrophils 6.7 thou/uL (1.40-6.50); %Basophils 0.5 % (0.0-1.0); %Eosinophils 0.8 % (0.0-10.0); %Lymphocytes 10.2 % (21.0-51.0); %Monocytes 10.7 % (0.0-10.0); %Neutrophils 77.8 % (42.0-75.0); Hemoglobin 9.6 g/dL (14.0-18.0); Mean Corpuscular HGB CONC 30.4 g/dL (32.0-36.0); Mean Corpuscular Hemoglobin 27.7 pg (27.0-31.0); Mean Platelet Volume 7.8 fL (7.4-10.4); Platelet Count 176 thou/uL (130-400); RBC Distribution Width 16.1 % (11.5-14.5); Red Blood Cell (RBC) Count 3.47 mill/uL (4.70-6.10); White Blood Cell (WBC) Count 8.6 thou/uL (4.8-10.8)
[2017-04-27 17:44] LABS: Anion Gap 12 mmol/L (10-20); BUN (Urea Nitrogen) 21 mg/dL (8.4-25.7); Calc. Creatinine Clearance 0 mL/min (70-130); Calcium 8.4 mg/dL (7.8-10.44); Carbon Dioxide 28 mmol/L (23-31); Chloride 105 mmol/L (98-107); Estimated GFR-MDRD 81; Glucose 64 mg/dL (83-110); Potassium 3.1 mmol/L (3.5-5.1); Sodium 142 mmol/L (136-145)
--- NOTE | 2017-04-27 19:29 | HP ---
HISTORY OF PRESENT ILLNESS: Mr. Colón is a 72-year-old male. He presented to the office with several days of cough and chest congestion. He said the last few days he felt terrible and feels a little bit better today. I reviewed his chest radiographs and I cannot decide whether he has fluid in his minor fissure on the right or actually has an alveolar infiltrate in this area. He looks weak to me and his is very concerned about his clinical condition , I have elected to admit him. PAST MEDICAL HISTORY: 1. Remarkable for COPD exacerbation, last fall. 2. Bilateral infiltrates felt to be hospital-acquired pneumonia. He was actually discharged home on 12/26/2016 and readmitted on 01/11/2017. I followed him while he was in the hospital. 3. History of chronic obstructive pulmonary disease exacerbation during that hospitalization in November. 4. History of diastolic heart failure, also factor he was in the hospital in November of last year. He does have moderate to severe mitral regurgitation and moderate to severe aortic insufficiency by echocardiogram, which always makes the situations a little more difficult clinically to sort through. 5. History of esophageal cancer, status post Garfield-Amarjit esophagectomy with no clinical recurrence since his surgery. 6. History of right subclavian MediPort placement. 7. History of a left subclavian pacemaker. 8. History of multiple fractures in the past, requiring surgery. 9. Hypothyroidism, on replacement. 10. History of a lipid disorder. 11. History of a cystectomy. SOCIAL HISTORY: He is currently not smoking and not drinking. FAMILY HISTORY: Negative for lung disease at an early age. ALLERGIES: He has no drug allergies. REVIEW OF SYSTEMS: He denies orthopnea, paroxysmal nocturnal dyspnea. He denies hemoptysis. He denies pleurisy. He has mainly cough, shortness of breath, and chest congestion. A 12-point review of systems is otherwise negative. PHYSICAL EXAMINATION: VITAL SIGNS: In the office, blood pressure 110/68, heart rate 104, respiratory rate was 24, and oximetry was 94% to 96% on room air. GENERAL: He is cachectic appearing. He has temporal muscle wasting. HEENT: His pupils are equal. Sclerae is anicteric. His extraocular movements are full. Throat is clear. NECK: Supple. LUNGS: Remarkable for rhonchi, worse on the right than the left. He has expiratory wheezes diffusely. HEART: Regular rhythm, slightly rapid rate. ABDOMEN: Soft and nontender. EXTREMITIES: Without clubbing, cyanosis, or edema. IMAGING: Chest radiograph as mentioned reviewed by me is worrisome for an infiltrate in his right mid lung. He has an increase in interstitial markings diffusely. IMPRESSION AND PLAN: 1. Community-acquired pneumonia? associated with viral illness. 2. History of moderate to severe mitral regurgitation and moderate to severe aortic insufficiency. 3. History of underlying obstructive lung disease. 4. History of diastolic dysfunction, it is unclear how much of his valvular heart disease and diastolic dysfunction is contributing to his current symptoms. I think it is important given his multiple medical problems, we made him to the hospital for treatment with IV antibiotics, where is a noncontrast CT of his chest. Check his renal function and check his CBC, and hopefully we will see rapid clinical improvement. If he is better hours in 48 to 72 hours, we can discharge him home. Start him on IV fluids, assuming this as pneumonia. I do not think he is volume overloaded, but after we will have to review his CT and make further recommendations after that. Also planned latest cardiology note is in the hospital. 5. Status post coronary artery bypass grafting x2 with a saphenous vein to his LAD, and a saphenous vein to his diagonal and there were no obtuse marginal ramus targets. This was done on 11/12/2016. This was a 50-minute consult, greater than 50% of the time was spent coordinating care on the unit. JEANNINE
--- NOTE | 2017-04-27 22:51 | CT ---
CT OF CHEST PERFORMED WITHOUT CONTRAST ENHANCEMENT: 04/27/17 HISTORY: Shortness of breath. Evaluation for pneumonia. COMPARISON: 12/28/15 CT angio of the chest. There are chronic appearing pleural changes in the left lung apex. There are chronic lung changes see n; however, there appears to have been development of some left lower lobe infiltrative changes. Ther e is also fluid within the major fissure. On the right side, there is also a right pleural effusion. There is a lateral herniation of lung. The mass-like area in the right mid lung field noted on recent chest x-ray related to fluid within the fissure. This is fluid within the major fissure, there is al so fluid within the minor fissure. There is evidence of some honeycombing. There are parenchymal freeman ges in the right mid lung field which are also slightly more prominent than on the prior exam. There is what appears to be a gastric pull-up again noted. The visualized liver parenchyma is normal. IMPRESSION: 1. Severe chronic lung change. There is also evidence that would suggest some patchy infiltrativ e changes in the left lower lobe and right lower lobe and right mid lung field. 2. Prominent density seen on chest film is related to fluid within the right minor and major fis sures. There is also fluid within the left major fissure. POS: [facility]
[2017-04-28] MEDS: Piperacillin/Tazobactam 3.375 GM in Sodium Chloride 0.9% 100 ML IVPB SCH ×5 (00:01→22:36)
[2017-04-28] MEDS: Sodium Chloride 0.45% 1,000 ML IV SCH ×2 (05:51→21:35)
[2017-04-28] MEDS: Levothyroxine Sodium 125 MCG TAB PO SCH (05:52)
[2017-04-28] MEDS: Enoxaparin Sodium 40 MG/0.4 ML SYRINGE SC SCH (08:24)
[2017-04-28] MEDS ORDERED: Prevnar 13-Val Conj/PF 0.5 ML SYRINGE IM ONE (09:00)
[2017-04-28] MEDS: Sodium Chloride 0.65% Nasal 44 ML BOT EA NARE SCH ×4 (09:47→21:37)
--- NOTE | 2017-04-28 20:16 | PRG ---
DATE OF SERVICE: 04/28/2017 SUBJECTIVE: Han Colón says he feels a little better. PHYSICAL EXAMINATION: VITAL SIGNS: He is afebrile. Heart rate was 97 this morning and 108 this afternoon, respiratory rat e is 22, oximetry is 98 on 2 liters. LUNGS: Remarkable for diffuse coarse wheezes. HEART: Regular rhythm. ABDOMEN: Soft. I reviewed his chest CT. This shows retained food products in his stomach, which is up in his chest behind his cardiac silhouette. I discussed this with him and he tells me he does wake up at night with food in his mouth. I suspect he is chronically nocturnally regurgitating. I discussed n.p.o. status after about 5:00 p.m. since he goes to bed at 10:00, but he quickly changed the subject when I told him he should not eat for las t 5 hours before he goes to bed. Other option would be to get a bed that he can elevate the head or put in reverse Trendelenburg. Hazy infiltrate on the right turns out his pleural fluid. I do not find anything that made me believe that he needs thoracentesis. He may have either a chemic al pneumonitis or pneumonia in his right lower lobe in reviewing the CT. In any event, we will rosa nue with antimicrobial therapy. He appears to be clinically improving. Hopefully, we can discharge in 24-48 hours.
[2017-04-28] MEDS: Temazepam 15 MG CAP PO PRN (22:31)
[2017-04-29] MEDS: Furosemide 40 MG TAB PO SCH (04:05)
[2017-04-29] MEDS: Sodium Chloride 0.45% 1,000 ML IV SCH ×2 (04:26→16:21)
[2017-04-29] MEDS: Levothyroxine Sodium 125 MCG TAB PO SCH (05:34)
[2017-04-29] MEDS: Piperacillin/Tazobactam 3.375 GM in Sodium Chloride 0.9% 100 ML IVPB SCH ×2 (05:36→12:07)
[2017-04-29] MEDS: Enoxaparin Sodium 40 MG/0.4 ML SYRINGE SC SCH (08:02)
[2017-04-29] MEDS: Sodium Chloride 0.65% Nasal 44 ML BOT EA NARE SCH ×4 (08:03→21:41)
--- NOTE | 2017-04-29 18:11 | PRG ---
DATE OF SERVICE: 04/29/2017 Mr. Colón is afebrile. OBJECTIVE: VITAL SIGNS: Heart rate is 110, respiratory rate 16, oximetry is 98 on room air , blood pressure 92/57. He started diuresing today he says. LUNGS: Still remarkable for diffuse coarse wheezes. HEART: Regular rhythm. ABDOMEN: Soft. IMPRESSION: 1. Chronic obstructive pulmonary disease exacerbation. 2. Bronchitis with perhaps component of pneumonia. 3. Diastolic heart failure with valvular heart disease. 4. Status post coronary artery bypass grafting. 5. Deconditioning. PLAN: Continue physical therapy, steroids, and nebulizer treatments. May be a candidate to go home in the morning. JEANNINE
[2017-04-29] MEDS: Amoxicillin/Potassium Clav 875 MG TAB PO SCH (21:40)
[2017-04-29] MEDS: Temazepam 15 MG CAP PO PRN (21:40)
[2017-04-30] MEDS: Levothyroxine Sodium 125 MCG TAB PO SCH (06:44)
[2017-04-30] MEDS: Enoxaparin Sodium 40 MG/0.4 ML SYRINGE SC SCH (07:40)
[2017-04-30] MEDS: Amoxicillin/Potassium Clav 875 MG TAB PO SCH ×2 (07:40→20:34)
[2017-04-30] MEDS: Furosemide 40 MG TAB PO SCH (07:41)
[2017-04-30] MEDS: Sodium Chloride 0.65% Nasal 44 ML BOT EA NARE SCH ×3 (07:50→16:36)
[2017-04-30] MEDS ORDERED: predniSONE 20 MG TAB PO SCH (08:00)
[2017-04-30] MEDS: Sodium Chloride 0.45% 1,000 ML IV SCH (12:16)
--- NOTE | 2017-04-30 12:54 | PRG ---
DATE OF SERVICE: 04/30/2017 Ms. Colón I thought would be ready to go home, but he says that about 2 in the morning he became frigh tened and short of breath, but he says he is better this morning. PHYSICAL EXAMINATION: VITAL SIGNS: He is afebrile, heart rate 99, respiratory rate 16, oximetry 95. LUNGS: He still has rhonchorous breath sounds bilaterally. He still has diffuse wheezes. HEART: R egular rhythm. ABDOMEN: Abdomen is soft. He is not using accessory muscles. We will try switching him to an EzPAP and do this around the clock to see if this leads to improvemen t in his ability to clear his secretions. He sounds a little worse today, so I will place him back on IV steroids. I will add high dose mucolytics today. He will probably need [facility]
[2017-04-30] MEDS ORDERED: guaiFENesin ER 600 MG TAB PO SCH (13:00)
[2017-04-30] MEDS: guaiFENesin ER 600 MG TAB PO SCH ×2 (13:12→20:33)
[2017-04-30] MEDS: Temazepam 15 MG CAP PO PRN (20:34)
[2017-05-01] MEDS: Sodium Chloride 0.65% Nasal 44 ML BOT EA NARE SCH ×5 (04:20→20:19)
[2017-05-01] MEDS: Levothyroxine Sodium 125 MCG TAB PO SCH (05:28)
[2017-05-01] MEDS: Amoxicillin/Potassium Clav 875 MG TAB PO SCH ×2 (09:50→20:19)
[2017-05-01] MEDS: Furosemide 40 MG TAB PO SCH ×2 (09:50→09:51)
[2017-05-01] MEDS: Enoxaparin Sodium 40 MG/0.4 ML SYRINGE SC SCH (09:53)
[2017-05-01] MEDS: guaiFENesin ER 600 MG TAB PO SCH ×2 (10:48→20:19)
[2017-05-01] MEDS: Sodium Chloride 0.45% 1,000 ML IV SCH (12:31)
--- NOTE | 2017-05-01 18:55 | PRG ---
DATE OF SERVICE: 05/01/2017 SERVICE: Pulmonary Medicine. INTERVAL HISTORY: The patient is doing fine from a respiratory standpoint. He denies any current fevers, chills, nausea or vomiting. He continues to have cough and persistent dyspnea with exertion. He currently has his oxygen off only because he got a nosebleed. He is also eating and does not like wearing oxygen while he is eating. Whenever he gets up to walk around, he has dyspnea that limits his mobility. He is moving in right direction, but not back to baseline. He coughed up a little bit of yellow sputum. He also had some clicks of blood in his sputum. PHYSICAL EXAMINATION: VITAL SIGNS: Afebrile, pulse 89, blood pressure 105/65, respirations 16, saturation 98% on 1 liter nasal cannula. GENERAL: The patient is awake, alert, in no apparent distress. LUNGS: Extensive rhonchi are present throughout bilateral inspiratory and expiratory phases. There is slightly prolonged expiratory phase, but he is moving pretty decent air. No wheezing or crackles are appreciated. HEART: Normal rate, regular. ABDOMEN: Soft, nontender, and nondistended. Bowel sounds positive. MUSCULOSKELETAL: No cyanosis or clubbing. He has got 2 to 3+ pitting in the bilateral lower extremities and he tells me this is much improved. GENITOURINARY: No Hazel. NEUROLOGIC: Grossly nonfocal. LABORATORY DATA: Blood cultures x2 were unremarkable. IMAGING: CT of the chest demonstrates extensive fibrotic changes throughout the bilateral lung garza which are more pronounced around the periphery. He also has fluid in the bilateral fissures as well as bilateral pleural effusions. All these findings could be consistent with volume overload state. A large hiatal hernia is evident. He has got bronchiectatic changes throughout bilateral lung garza which are more pronounced in the dependent and centrally located regions. ASSESSMENT: 1. Acute hypoxic respiratory failure. 2. Gastroesophageal reflux disease, severe. 3. Bronchiectasis with acute exacerbation. 4. Chronic obstructive pulmonary disease with acute exacerbation. 5. Acute on chronic diastolic heart failure. PLAN: We will continue diuresing to approach euvolemia. I will repeat laboratories in the morning and get a little aggressive with his diuretics if he looks like his labs can tolerate it tomorrow. We will make certain he maintains head of bed elevated. We will add physiotherapy as the patient has significant secretions likely associated with aspiration of abdominal contents. Pulmonary or Critical Care will continue to follow. MTDD
[2017-05-01] MEDS: Temazepam 15 MG CAP PO PRN (20:19)
[2017-05-02] MEDS: Levothyroxine Sodium 125 MCG TAB PO SCH (05:32)
[2017-05-02 06:02] LABS: #Lymphocytes 0.3 thou/uL (1.20-3.40); #Monocytes 0.4 thou/uL (0.11-0.59); #Neutrophils 5.9 thou/uL (1.40-6.50); %Eosinophils 0.1 % (0.0-10.0); %Lymphocytes 4.3 % (21.0-51.0); %Monocytes 6.2 % (0.0-10.0); %Neutrophils 89.4 % (42.0-75.0); Hemoglobin 9.2 g/dL (14.0-18.0); Mean Corpuscular HGB CONC 30.7 g/dL (32.0-36.0); Mean Corpuscular Hemoglobin 27.8 pg (27.0-31.0); Mean Corpuscular Volume 90.6 fl (80.0-94.0); Mean Platelet Volume 8.6 fL (7.4-10.4); Platelet Count 140 thou/uL (130-400); Red Blood Cell (RBC) Count 3.29 mill/uL (4.70-6.10); White Blood Cell (WBC) Count 6.6 thou/uL (4.8-10.8)
[2017-05-02 06:21] LABS: Anion Gap 12 mmol/L (10-20); BUN (Urea Nitrogen) 35 mg/dL (8.4-25.7); Calc. Creatinine Clearance 55 mL/min (70-130); Calcium 8.9 mg/dL (7.8-10.44); Carbon Dioxide 30 mmol/L (23-31); Chloride 103 mmol/L (98-107); Estimated GFR-MDRD 72; Glucose 199 mg/dL (83-110); Magnesium 2.6 mg/dL (1.6-2.6); Phosphorus 4.1 mg/dL (2.3-4.7); Potassium 3.7 mmol/L (3.5-5.1); Sodium 141 mmol/L (136-145)
[2017-05-02] MEDS: guaiFENesin ER 600 MG TAB PO SCH ×2 (08:48→20:59)
[2017-05-02] MEDS: Amoxicillin/Potassium Clav 875 MG TAB PO SCH ×2 (08:48→20:59)
[2017-05-02] MEDS: Enoxaparin Sodium 40 MG/0.4 ML SYRINGE SC SCH (08:49)
[2017-05-02] MEDS: Sodium Chloride 0.65% Nasal 44 ML BOT EA NARE SCH ×4 (08:55→21:00)
[2017-05-02] MEDS ORDERED: Furosemide 40 MG TAB PO SCH (09:00)
[2017-05-02] MEDS ORDERED: Potassium Chloride 20 MEQ TAB PO SCH (18:45)
[2017-05-02] MEDS: Temazepam 15 MG CAP PO PRN (21:07)
--- NOTE | 2017-05-02 23:56 | PRG ---
DATE OF SERVICE: 05/02/2017 SERVICE: Pulmonary Medicine. INTERVAL HISTORY: The patient is actually feeling very good this morning. He denies any current fevers, chills, nausea, vomiting or chest discomfort. Otherwise, he is moving in the right direction. He really enjoyed the physiotherapy. It helped him liberate a significant amount of sputum. Afterwards, he felt much improved. Otherwise, there has been no interval change to his condition. PHYSICAL EXAMINATION: VITAL SIGNS: Afebrile, pulse 109, blood pressure , respirations 16, saturation 96% on 2 liters nasal cannula. GENERAL: Patient is awake, alert, no apparent distress. LUNGS: Decreased air entry. Rhonchi are still present, but they are much improved. There is no prolonged expiratory phase, but do not hear any small airway wheezing. HEART: Normal rate, regular. ABDOMEN: Soft, nontender, nondistended. Bowel sounds positive. MUSCULOSKELETAL: No cyanosis or clubbing. There is 1+ pitting in the bilateral lower extremities, which is a little better. LABORATORY DATA: WBC 6.6, hemoglobin 9.2, platelets 140,000. Basic metabolic profile is essentially unremarkable with a BUN of 35, creatinine of 1.02. Potassium is 3.7. Blood cultures x2 are unremarkable. ASSESSMENT: 1. Acute hypoxic respiratory failure, resolving. 2. Gastroesophageal reflux disease, severe. 3. Minimal bronchiectasis with acute exacerbation, likely secondary to nocturnal aspiration. 4. Chronic obstructive pulmonary disease with acute exacerbation. 5. Acute on chronic diastolic heart failure. PLAN: We will continue to gently diurese the patient moving forward. I will replace the potassium. Lab holiday will be provided tomorrow morning. We will continue nebulized medications, antibiotics and steroids as well as the physiotherapy. In the outpatient setting, he can be considered for vest physiotherapy as he notes excellent benefit to chest percussion. JEANNINE
[2017-05-03 05:43] VITALS: BMI 19.1
[2017-05-03] MEDS: Levothyroxine Sodium 125 MCG TAB PO SCH (06:03)
[2017-05-03] MEDS: Enoxaparin Sodium 40 MG/0.4 ML SYRINGE SC SCH (08:43)
[2017-05-03] MEDS: guaiFENesin ER 600 MG TAB PO SCH ×2 (08:43→20:34)
[2017-05-03] MEDS: Furosemide 40 MG TAB PO SCH (08:44)
[2017-05-03] MEDS: Sodium Chloride 0.65% Nasal 44 ML BOT EA NARE SCH ×4 (08:44→20:34)
[2017-05-03] MEDS: predniSONE 20 MG TAB PO SCH (08:44)
[2017-05-03] MEDS: Amoxicillin/Potassium Clav 875 MG TAB PO SCH ×2 (08:44→20:34)
--- NOTE | 2017-05-03 17:09 | PRG ---
DATE OF SERVICE: 05/03/2017 Han Colón says he was scared again last night. He says his respiratory treatments have been coming later than scheduled. His oximetry is not an issue, but his rhonchi work of breathing is. Some of this is anxiety. Some o f this is weakness and deconditioning. OBJECTIVE: VITAL SINGS: He is afebrile, heart rate is 101, respiratory rate is 20, oximetry is 95 on room air. LUNGS: Remarkable for diffuse rhonchi that improved, but do not clear with coughing. HEART: Regular rhythm. ABDOMEN: Soft. IMPRESSION: 1. Chronic obstructive pulmonary disease exacerbation. 2. Bronchitis. 3. ? component of pneumonia. 4. History of bilateral pneumonia last fall. 5. History of diastolic heart failure with valvular heart disease. 6. History of coronary artery bypass grafting. 7. Cachexia and deconditioning. PLAN: Continue nebulized treatments. Hopefully, we can consider going home in a day or two, but he is improving very slowly.
[2017-05-03] MEDS: Temazepam 15 MG CAP PO PRN (21:52)
[2017-05-04] MEDS: Furosemide 40 MG TAB PO SCH (05:40)
[2017-05-04] MEDS: Levothyroxine Sodium 125 MCG TAB PO SCH (05:40)
[2017-05-04] MEDS: Enoxaparin Sodium 40 MG/0.4 ML SYRINGE SC SCH (08:02)
[2017-05-04] MEDS: Amoxicillin/Potassium Clav 875 MG TAB PO SCH (08:02)
[2017-05-04] MEDS: guaiFENesin ER 600 MG TAB PO SCH (08:02)
[2017-05-04] MEDS: predniSONE 20 MG TAB PO SCH (08:02)
[2017-05-04] MEDS: Sodium Chloride 0.65% Nasal 44 ML BOT EA NARE SCH ×2 (08:03→13:00)
[2017-05-04 08:20] VITALS: BP 96/58; TEMP 97.6
--- NOTE | 2017-05-05 05:06 | DIS ---
Mr. Colón did well overnight. He says he is back to baseline. He did not get short of breath at night. PHYSICAL EXAMINATION: VITAL SIGNS: His vital signs have been stable. LUNGS: Still remarkable for wheezes, but his rhonchi have improved significantly. CARDIOVASCULAR: Regular rhythm. ABDOMEN: Soft. DISCHARGE DIAGNOSES: 1. Asthmatic bronchitis. 2. Community-acquired pneumonia, possible aspiration mediated. 3. History of a gastric pull-through for esophageal cancer with retained gastric contents seen behind his heart on x-ray. He has been instructed to elevate the head of his bed more, get a hospital bed and/or stopped eating between 4:00 and 5:00 in the evening. 4. Relative cachexia. 5. Deconditioning. 6. Underlying significant chronic obstructive pulmonary disease. 7. History of bilateral pneumonia last year. 8. History of coronary artery bypass grafting last year. 9. Marginal compliance with exercise as an outpatient in spite of multiple conversations in the office and in the hospital. 10. Lipid disorder. 11. Hypothyroidism, on replacement. 12. History of coronary artery bypass grafting, late last year. 13. History of depression and insomnia. 14. Normal left ventricular systolic function. 15. Moderate to severe mitral regurgitation with moderate to severe aortic insufficiency. We will go home with a nebulizer using that for 5-6 times a day with ipratropium and albuterol, he is now on albuterol rescue inhaler. He takes an aspirin a day, atorvastatin 20 mg a day, Tessalon Perles, nebulized budesonide 0.5 mg twice a daily, Lasix 20 mg p.o. daily and will go home with another week of Levaquin. He will take 40 of prednisone for 5 days and 20 mg till he sees me in 10 days, takes Synthroid 125 mcg a day, Zoloft 50 mg at bedtime. I will see him in the office. He is encouraged to call me should he clinically decompensate. JEANNINE
== END 2017-05-04 16:30 | disposition home or self-care (01) | DRG 177 ==
LOC: T4-B 13:59
PROVIDERS: ADMIT Internal Medicine Critical Care Medicine; ATTEND Internal Medicine Critical Care Medicine
DX: J69.0 Pneumonitis due to inhalation of food and vomit (principal); J96.01 Acute respiratory failure with hypoxia; I50.33 Acute on chronic diastolic (congestive) heart failure; R64 Cachexia; J44.0 Chronic obstructive pulmonary disease with (acute) lower respiratory infection; J44.1 Chronic obstructive pulmonary disease with (acute) exacerbation; Z68.1 Body mass index [BMI] 19.9 or less, adult; I08.0 Rheumatic disorders of both mitral and aortic valves; Z85.01 Personal history of malignant neoplasm of esophagus; Z87.01 Personal history of pneumonia (recurrent); Z95.0 Presence of cardiac pacemaker; Z95.1 Presence of aortocoronary bypass graft; K21.9 Gastro-esophageal reflux disease without esophagitis; R04.0 Epistaxis; E78.9 Disorder of lipoprotein metabolism, unspecified; E03.9 Hypothyroidism, unspecified; F32.9 Major depressive disorder, single episode, unspecified; G47.00 Insomnia, unspecified; I11.0 Hypertensive heart disease with heart failure
CPT/HCPCS: 36415; 71046; 71250; 80048; 83735; 84100; 85025; 87040; 94640; 94667; 94668; G8978-GP-CJ; G8979-GP-CJ; G8980-GP-CJ; J1650; J2543; J2920; J7050; J7506; J7620

== ENCOUNTER 2017-06-09 15:14 | Inpatient (IN) | payer MEDICARE ==
[2017-06-09 16:08] LABS: Hemoglobin 10.8 g/dL (14.0-18.0); Mean Corpuscular HGB CONC 29.8 g/dL (32.0-36.0); Mean Corpuscular Volume 90.5 fl (80.0-94.0); Platelet Count 218 thou/uL (130-400); RBC Distribution Width 16.7 % (11.5-14.5); Red Blood Cell (RBC) Count 4.01 mill/uL (4.70-6.10); White Blood Cell (WBC) Count 11.2 thou/uL (4.8-10.8)
--- NOTE | 2017-06-09 16:10 | RAD ---
CHEST 2 VIEWS: Date: 06/09/17 HISTORY: Chest pain. COMPARISON: 02/08/17. FINDINGS: Cardiac silhouette is now more obscured by patchy bilateral air space disease. The largest is an oval 8.4 cm mass-like infiltrate projecting over the right lateral lung base. Left cardiac margin predomi nantly obscured. Mediastinum is midline with postoperative changes and a dual lead left subclavian ca rdiac electronic device. Bilateral pleural fluid is present. Herniation of a portion of the right lung through the right mid c hest wall is similar in appearance to the prior study. IMPRESSION: 1. Worsening multifocal bilateral infiltrates. Worsening bilateral pleural effusions. Clinical corre lation regarding other signs and symptoms of worsening multifocal pneumonitis versus other cause of l rober disease is required. 2. Atherosclerosis. POS: [facility]
[2017-06-09 16:22] LABS: ALT (SGPT) 60 U/L (8-55); AST (SGOT) 59 U/L (5-34); Albumin 3.7 g/dL (3.4-4.8); Alkaline Phosphatase 143 U/L (40-150); Anion Gap 18 mmol/L (10-20); BUN (Urea Nitrogen) 56 mg/dL (8.4-25.7); Bilirubin, Total 0.6 mg/dL (0.2-1.2); CK (CPK) 120 U/L (30-200); Calc. Creatinine Clearance 0 mL/min (70-130); Calcium 9.5 mg/dL (7.8-10.44); Carbon Dioxide 24 mmol/L (23-31); Chloride 102 mmol/L (98-107); Estimated GFR-MDRD 56; Globulin 3.4 g/dL (2.4-3.5); Glucose 138 mg/dL (83-110); Potassium 5.4 mmol/L (3.5-5.1); Protein, Total 7.1 g/dL (5.8-8.1); Sodium 139 mmol/L (136-145)
[2017-06-09 16:27] LABS: Troponin I 0.059 ng/mL (< 0.028)
[2017-06-09 16:29] LABS: Anisocytosis SLIGHT = 6-15 cells (100X) (0-5/hpf); Band 1 % (5-11); Hypochromia SLIGHT = 6-15 cells (100X) (0-5/hpf); Lymphocytes 4 % (21-51); MDiff Complete? YES; Monocytes 2 % (0-10); Neutrophil 93 % (42-75); Ovalocytes SLIGHT = 2-5 cells (100X) (0-1/hpf); PLT Morphology Comment Appears Adequate
[2017-06-09 16:34] LABS: CKMB 8.6 ng/mL (0-6.6)
[2017-06-09] MEDS ORDERED: Nitroglycerin 2% Ointment 1 INCH/1 GM Packet ONE (17:39)
[2017-06-09] MEDS ORDERED: Furosemide 40 MG/4 ML VIAL ONE (17:39)
[2017-06-09] MEDS ORDERED: Piperacillin/Tazobactam 4.5 GM in Sodium Chloride 0.9% 100 ML IVPB SCH (17:45)
[2017-06-09] MEDS ORDERED: Vancomycin HCl 1 GM in Premix Bag 1 BAG IVPB SCH (17:45)
[2017-06-09 18:56] LABS: Troponin I 0.078 ng/mL (< 0.028)
[2017-06-09 18:59] LABS: Bilirubin Negative (Negative); Blood, Urine Negative (Negative); Clarity CLEAR (Clear); Glucose, Urine (Dipstick) Negative (Negative); Leukocyte Negative (Negative); Nitrite Negative (Negative); Protein, Urine (Dipstick) 30 mg/dL (Neg-Trace); Urobilinogen 0.2 mg/dL (0.2-1.0)
[2017-06-09 19:01] LABS: Bacteria/HPF Rare-Few HPF (None Seen); Hyaline Casts/LPF 0-3 HYALINE CAST LPF (0-3 Hyaline); RBC/HPF 0-3 HPF (0-3); Squamous Epithelial None Seen HPF (0-3); WBC/HPF None Seen HPF (0-3)
[2017-06-09] MEDS ORDERED: Ondansetron ODT 4 MG TAB SL PRN (19:54)
[2017-06-09] MEDS ORDERED: Ondansetron HCl/PF 4 MG/2 ML Vial IVP PRN (19:54)
[2017-06-09] MEDS ORDERED: Acetaminophen 325 MG TAB PO PRN (19:54)
[2017-06-09 21:12] LABS: Lactic Acid 2.1 mmol/L (0.5-2.2)
[2017-06-09 22:33] LABS: Troponin I 0.084 ng/mL (< 0.028)
[2017-06-10] MEDS ORDERED: Acetaminophen 325 MG TAB PO PRN (00:28)
[2017-06-10] MEDS ORDERED: Guaifenesin DM 100-10/5 ML UDCUP PO PRN (00:28)
[2017-06-10] MEDS ORDERED: Benzonatate 100 MG CAP PO PRN (00:28)
[2017-06-10] MEDS ORDERED: Senokot 8.6 MG TAB PO PRN (00:28)
[2017-06-10 00:35] LABS: Base Excess (BEa) 1.8 mEq/L (0 (+/-) 2.5); CO2 Tension 39.1 mmHg (35.0-45.0); Hematocrit-ABG 35.9 % (42.0-52.0); Hemoglobin (Hb) 10.2 g/dL (14.0-18.0); O2 Tension (PaO2) 96.2 mmHg (80.0-100.0); pH, Arterial 7.44 (7.35-7.45)
[2017-06-10 00:36] LABS: ALV-art Gradient 54.565 (0-20); Analyzer IN Cardio ER; Calcium, Ionized 1.1 mmol/L (1.12-1.30); Puncture Site L RADIAL
[2017-06-10] MEDS ORDERED: VANCOMYCIN IVPB PRN (00:48)
[2017-06-10] MEDS: Cefepime 1 GM, Admixture Fee 1 EACH in Sodium Chloride 0.9% 10 ML SLOW IVP SCH ×2 (01:47→13:20)
--- NOTE | 2017-06-10 05:09 | HP ---
REASON FOR ADMISSION: Acute chronic obstructive pulmonary disease exacerbation , acute congestive heart failure exacerbation, likely aspiration pneumonia. HISTORY OF PRESENTING ILLNESS: Patient gives history of shortness of breath from last 3 days. This was progressively getting worse. Patient states he was recently hospitalized here. He finished steroids 2 days back. He had no history of fever, but has complaints of brown-colored sputum. He is not on any home oxygen. Patient has history of esophageal cancer with stomach pull- through surgery done in 1996 at [facility]. He was suspected to have aspiration during his last admission as well. Patient uses nebulizers twice a day and ProAir inhaler 4-5 times a day. He normally ambulates by himself. Lives with his of 54 years. No complaints of chest pain or palpitations. PAST MEDICAL AND SURGICAL HISTORY: History of COPD, recent hospitalization for aspiration pneumonia on 05/04/2017, history of stomach pull-through surgery for esophageal cancer in 1996, COPD, coronary artery bypass for 2-vessel disease in 11/2006, pacemaker placed on 11/18/2016, dyslipidemia, hypothyroidism, depression, insomnia, [id number] mitral regurgitation, moderate-to- severe aortic insufficiency, history of right subclavian MediPort placement, history of diastolic heart failure. CURRENT MEDICATIONS: Patient is on albuterol inhaler q.4 hourly p.r.n., aspirin 81 mg p.o. daily, Lipitor 20 mg p.o. daily, Pulmicort nebulizer twice daily, Symbicort inhaler 2 puffs twice daily, Lasix 20 mg daily, levothyroxine 125 mcg p.o. daily, DuoNebs q.4 hourly. ALLERGIES: HEPARIN. PERSONAL HISTORY: Quit smoking 3 years ago, prior to which has smoked one pack a day for nearly 30-40 years. Does not abuse alcohol or drugs. Lives with his of 54 years. FAMILY HISTORY: Mother of vaginal cancer at the age of 68 years. Father at the age of 74 years. He has had history of coronary artery disease. REVIEW OF SYSTEMS: The following complete review of systems was negative, unless otherwise mentioned in the HPI or below: Constitutional: Weight loss or gain, ability to conduct usual activities. Skin: Rash, itching. Eyes: Double vision, pain. ENT/Mouth: Nose bleeding, neck stiffness, pain, tenderness. Cardiovascular: Palpitations, dyspnea on exertion, orthopnea. Respiratory: Shortness of breath, wheezing, cough, hemoptysis, fever, or night sweats. Gastrointestinal: Poor appetite, abdominal pain, heartburn, nausea, vomiting, constipation, or diarrhea. Genitourinary: Urgency, frequency, dysuria, nocturia. Musculoskeletal: Pain, swelling. Neurologic/Psychiatric: Anxiety, depression. Allergy/Immunologic: Skin rash, bleeding tendency. PHYSICAL EXAMINATION: GENERAL: Patient is a 72-year-old male who is currently in mild to moderate respiratory distress. VITAL SIGNS: Blood pressure 104/70, pulse 102 per minute, respiratory rate 24 per minute, saturating 84% on room air, and 96% on 4 liters nasal cannula. NECK: Supple, no elevated JVD. HEENT: Extraocular muscles intact. Pupils are reacting to light. Oral cavity mucous membranes are dry. No exudates or congestion. CARDIOVASCULAR SYSTEM: S1, S2 heard. Regular rhythm. RESPIRATORY SYSTEM: Air entry 1+ bilateral. Scattered wheezes plus bilateral. Rhonchi plus bilateral. ABDOMEN: Soft, bowel sounds heard. No tenderness, rigidity, or guarding. EXTREMITIES: No peripheral edema or calf tenderness. VASCULAR SYSTEM: Peripheral pulses 1+ bilateral, no ischemic ulcerations or gangrene. CENTRAL NERVOUS SYSTEM: No gross focal deficits seen. Patient is alert and oriented well. PSYCHIATRIC SYSTEM: Patient's mood is euthymic. No hallucinations or delusions. LABORATORY DATA AND X-RAY FINDINGS: White count of 11, H&H 10 and 36, platelet count is 218, MCV is 90 with 93% neutrophils. Blood gas done shows a pH of 7.44 , pCO2 of 39, pO2 of 96. Potassium 5.4, serum bicarbonate 24, BUN 26, creatinine 1.26, glucose 138. Lactic acid 2.4, AST 59, ALT 60, alkaline phosphatase 143. Troponin I 0.07, CK-MB 8.6. BNP is 1830. Albumin is 3.7. Chest x-ray done shows worsening of multifocal bilateral infiltrates. There is also bilateral pleural effusions, atherosclerosis. EKG done shows paced rhythm at 108 beats per minute. CLINICAL IMPRESSION AND PLAN: Patient will be admitted to [facility] for acute respiratory failure, aspiration pneumonia with prior history of esophageal cancer and stomach pull-through surgery done. He also has acute on chronic obstructive pulmonary disease exacerbation. Patient likely has congestive heart failure exacerbation with diastolic dysfunction and valve dysfunction as well. He will be on Lasix 40 mg IV q.12 hourly along with Solu-Medrol 40 mg IV q.[address] him on cefepime, vancomycin, and Levaquin for now. We will consult Dr. Iverson, his artillery meteorological man. I have discussed code status with him in view of his chronic aspiration, chronic obstructive pulmonary disease, cachectic body habitus, heart failure, but patient would like to be FULL CODE. We will await Dr. Iverson's consultation in the morning and if needed after consulting with Dr. Iverson, Palliative care consultation may be requested. Please hold off on palliative consultation until Dr. Iverson approves the same. We will continue his aspirin, Lipitor, Pepcid, Synthroid as before. He will be on DuoNebs q.[address] him on BiPAP for now until the patient's work of breathing improves. His ABG appears to be normal, but patient has difficulty breathing clinically and he is wheezing as well. Please note, I have seen and examined patient on 06/09/2017. JEANNINE
[2017-06-10 05:20] LABS: Anion Gap 17 mmol/L (10-20); BUN (Urea Nitrogen) 56 mg/dL (8.4-25.7); Calc. Creatinine Clearance 44 mL/min (70-130); Carbon Dioxide 29 mmol/L (23-31); Chloride 99 mmol/L (98-107); Estimated GFR-MDRD 58; Glucose 100 mg/dL (83-110); Potassium 4.4 mmol/L (3.5-5.1); Sodium 141 mmol/L (136-145)
[2017-06-10 05:47] LABS: #Lymphocytes 0.5 thou/uL (1.20-3.40); #Monocytes 0.8 thou/uL (0.11-0.59); #Neutrophils 11.6 thou/uL (1.40-6.50); %Basophils 0.1 % (0.0-1.0); %Eosinophils 0.2 % (0.0-10.0); %Lymphocytes 3.5 % (21.0-51.0); %Monocytes 6.4 % (0.0-10.0); %Neutrophils 89.8 % (42.0-75.0); Hemoglobin 10.3 g/dL (14.0-18.0); Mean Corpuscular HGB CONC 30.4 g/dL (32.0-36.0); Mean Corpuscular Hemoglobin 26.6 pg (27.0-31.0); Mean Corpuscular Volume 87.4 fl (80.0-94.0); Mean Platelet Volume 8.1 fL (7.4-10.4); Platelet Count 212 thou/uL (130-400); RBC Distribution Width 16.5 % (11.5-14.5); Red Blood Cell (RBC) Count 3.87 mill/uL (4.70-6.10)
[2017-06-10] MEDS: Levothyroxine Sodium 125 MCG TAB PO SCH (05:47)
[2017-06-10] MEDS ORDERED: Furosemide 40 MG/4 ML VIAL SLOW IVP SCH (06:00)
[2017-06-10 08:10] VITALS: BMI 17.7
[2017-06-10] MEDS ORDERED: Vancomycin HCl 1 GM in Premix Bag 1 BAG IVPB SCH (09:00)
[2017-06-10] MEDS ORDERED: Enoxaparin Sodium 30 MG/0.3 ML SYRINGE SC SCH ×2 (09:00)
[2017-06-10] MEDS ORDERED: Cefepime 1 GM in Sodium Chloride 0.9% 100 ML IVPB SCH (09:00)
[2017-06-10] MEDS ORDERED: Famotidine 20 MG TAB PO SCH (09:00)
[2017-06-10] MEDS: guaiFENesin ER 600 MG TAB PO SCH ×2 (09:01→21:44)
[2017-06-10] MEDS: Atorvastatin Calcium 20 MG TAB PO SCH (09:02)
[2017-06-10] MEDS: Docusate 100 MG CAP PO SCH ×2 (09:04→21:44)
--- NOTE | 2017-06-10 10:27 | PDOC.PN ---
- Subjective Encounter Start Date: 06/10/17 Encounter Start Time: 10:00 Subjective: pt and his report that he is much better today. - Objective Resuscitation Status: Resuscitation Status FULL:Full Resuscitation MAR Reviewed: Yes Vital Signs & Weight: Vital Signs (12 hours) Temp Pulse Pulse Pulse Pulse Resp Resp 06/10/17 07:58 06/10/17 07:55 107 H 24 H 06/10/17 04:00 97.9 F 06/10/17 02:02 108 H 36 H 06/10/17 00:39 97.5 F L 108 H 36 H 06/10/17 00:10 115 H 110 H 110 H 36 H 06/10/17 00:09 06/09/17 23:44 97.9 F 109 H 24 H Resp Resp BP BP BP BP Pulse Ox 06/10/17 07:58 99 06/10/17 07:55 99 06/10/17 04:00 98 06/10/17 02:02 100 06/10/17 00:39 100 06/10/17 00:10 36 H 36 H 116/82 122/72 112/71 06/10/17 00:09 89 L 06/09/17 23:44 111/67 99 Pulse Ox Pulse Ox Pulse Ox 06/10/17 07:58 06/10/17 07:55 06/10/17 04:00 06/10/17 02:02 06/10/17 00:39 06/10/17 00:10 96 95 96 06/10/17 00:09 06/09/17 23:44 Weight Admit Weight 128 lb Weight 123 lb 14.397 oz Most Recent Monitor Data Heart Rate from ECG 103 NIBP 107/69 NIBP BP-Mean 76 Respiration from ECG 19 SpO2 100 I&O: 06/09/17 06/10/17 06/11/17 06:59 06:59 06:59 Intake Total 100 Output Total 1225 Balance -1125 Result Diagrams: 06/10/17 04:47 06/10/17 04:47 Phys Exam - Physical Examination Constitutional: NAD HEENT: PERRLA, moist MMs, sclera anicteric Neck: supple, full ROM Respiratory: wheezing present barrel chest Cardiovascular: RRR evangelista Gastrointestinal: soft, non-tender Musculoskeletal: no edema, pulses present Neurological: non-focal, moves all 4 limbs Psychiatric: normal affect, A&O x 3 Skin: no rash Dx/Plan (1) COPD exacerbation Code(s): J44.1 - CHRONIC OBSTRUCTIVE PULMONARY DISEASE W (ACUTE) EXACERBATION Status: Acute (2) Pneumonia Code(s): J18.9 - PNEUMONIA, UNSPECIFIED ORGANISM Status: Acute (3) Shortness of breath Code(s): R06.02 - SHORTNESS OF BREATH Status: Acute (4) Hypothyroidism Code(s): E03.9 - HYPOTHYROIDISM, UNSPECIFIED Status: Chronic (5) S/P CABG (coronary artery bypass graft) Code(s): Z95.1 - PRESENCE OF AORTOCORONARY BYPASS GRAFT Status: Chronic (6) CHF (congestive heart failure) Code(s): I50.9 - HEART FAILURE, UNSPECIFIED Status: Suspected - Plan cont current plan of care, plan discussed w/ family, continue antibiotics, respiratory therapy feels much better, condition guarded, Code green called last night. * .
--- NOTE | 2017-06-10 11:31 | PQF ---
Date: 06-10-17 ATTN: DR. SILVIA LOW Please exercise your independent, professional judgment in responding to the clarification form. Clinical indicators are provided on the bottom of this form for your review Please check appropriate box(s): [ ] Protein Calorie Malnutrition: [ ] Mild [ ] Moderate [ ] Severe [ ] Cachexia [ ] Other diagnosis [ x ] Unable to determine In addition, please specify: Present on Admission (POA): [x ] Yes [ ] No [ ] Unable to determine CLINICAL INDICATORS - SIGNS / SYMPTOMS / LABS BMI: 17.7 H&P: CACHECTIC BODY HABITUS IMPROVEMENT RN CONSULT 06-10-17: LOW BMI TRIGGER, The pt was recently here from -05/04 for possible aspiration PNA. Code green was called overnight for difficulty breathing. ESTIMATED NEEDS: COPD/PNA, CHF, UNDERWT ER DOCUMENTATION: HX OF ESOPHAGEAL CANCER, PT APPEARS CACHETIC AND ILL RISK FACTORS: ER DOCUMENTATION: HX OF ESOPHAGEAL CANCER, PT APPEARS CACHETIC AND ILL H&P: HX OF ESOPHAGEAL CANCER WITH STOMACH PULL- THROUGH, DEPRESSION, DLP, CHF TREATMENT: IMPROVEMENT RN CONSULT 06-10-17: LOW BMI TRIGGER, The pt was recently here from 04/27-05/04 for possible aspiration PNA. Code green was called overnight for difficulty breathing. ESTIMATED NEEDS: COPD/PNA, CHF, UNDERWT Nutritional supplements TPN / tube feedings Assistance with feeding Appetite stimulant - medication Moderate Malnutrition (in acute illness) Energy Intake: <75% of estimated energy requirement for > 7 days Weight Loss: 1-2%/1 week; 5%/ 1 month; 7.5%/3 months Other: mild body fat loss; mild muscle mass loss; mild fluid accumulation; Severe Malnutrition (in acute illness) Energy Intake: < 50% of estimated energy requirement for > 5 days Weight Loss: >1-2%/1 week; >5%/1 month; >7.5%/3 months Other: moderate body fat loss; moderate muscle mass loss; moderate- severe fluid accumulation; measurably reduced sign painter apprentice strength Moderate Malnutrition (in chronic illness) Energy Intake: <75% of estimated energy requirement for >1 month Weight Loss: 5%/1 month; 7.5%/3 months; 10%/6 months; 20%/1 year Other: mild body fat loss; mild muscle mass loss; mild fluid accumulation Severe Malnutrition (in chronic illness) Energy Intake: <75% of estimated energy requirement for >1 month Weight Loss: >5%/1 month; >7.5%/3 months; >10%/6 months; >20%/1 year Other: severe body fat loss; severe muscle mass loss; severe fluid accumulation ; measurably reduced sign painter apprentice strength (This form is maintained as a part of the permanent medical record) 2014 [employer]. All Rights Reserved FRANCISCO [email or web address] Office: [phone] HEL[facility] HAYES HOSPITALShawn
--- NOTE | 2017-06-10 11:48 | PQF ---
DATE: 06-10-17 ATTN : DR. SILVIA LOW Please exercise your independent, professional judgment in responding to the clarification form. Clinical indicators are provided on the bottom of this form for your review Please check appropriate box(es): [ ] Sepsis due to: (Pna, etc.) [ x ] Severe sepsis with acute organ dysfunction of: respiratory failure__ (Examples: Respiratory failure, Heart failure, other) [ ] Other diagnosis [ ] Unable to determine In addition, please specify: Present on Admission (POA): [x ] Yes [ ] No [ ] Unable to determine For continuity of documentation, please document condition throughout progress notes and discharge summary. Thank You. CLINICAL INDICATORS - SIGNS / SYMPTOMS / LABS ER DIAGNOSIS: CHF EXACERBATION, HYPERKALEMIA, LACTIC ACIDOSIS, PNEUMONIA, SEPSIS H&P: ACUTE RESPIRATORY FAILURE, ASPIRATION PNEUMONIA, ACUTE ON CHRONIC OBSTRUCTIVE PULMONARY DISEASE EXACERBATION, PATIENT LIKELY HAS CONGESTIVE HEART FAILURE EXACERBATION WITH DIASTOLIC DYSFUNCTION WBC: 06-09-17:: 11.2 06-10-17: 13.0 LACTIC ACIDOSIS: 06-09-17: 2.4 RR: 06-09-17: 22, 24, 24 06-10-17: 36, 36, 24 PULSE: 06-10-17: 115, 110, 114, 113, 107, 119 RISK FACTORS: H&P: ACUTE RESPIRATORY FAILURE, ASPIRATION PNEUMONIA, ACUTE ON CHRONIC OBSTRUCTIVE PULMONARY DISEASE EXACERBATION, PATIENT LIKELY HAS CONGESTIVE HEART FAILURE EXACERBATION WITH DIASTOLIC DYSFUNCTION ADVANCED AGE TREATMENTS: (MAR) MAXIPIME, LEVAQUIN, VANCOMYCIN (This form is maintained as a part of the permanent medical record) 2014 [employer]. All Rights Reserved FRANCISCO [email or web address] Office: [phone] JEANNINE
[2017-06-10] MEDS ORDERED: Albuterol Sulfate 2.5 mg/3 ml Neb NEB PRN (11:53)
--- NOTE | 2017-06-10 11:59 | PQF ---
DATE: 06-10-17 ATTN: DR. SILVIA LOW Please exercise your independent, professional judgment in responding to the clarification form. Clinical indicators are provided on the bottom of this form for your review Please check appropriate box(s): [ x ] Demand Ischemia [ ] NC (type: ) [ ] Other diagnosis [ ] Unable to determine In addition, please specify: Present on Admission (POA): [ x ] Yes [ ] No [ ] Unable to determine For continuity of documentation, please document condition throughout progress notes and discharge summary. Thank You. CLINICAL INDICATORS - SIGNS / SYMPTOMS/ LABS are present in the medical record: TROPONIN: 06-09-17: 0.059 0.078 0.084 RISK FACTORS: ER DOCUMENTATION: PACEMAKER, CABG X 2 VESSELS, FORMER SMOKER H&P: HX OF ASPIRATION PNEUMONIA, CABG, PACEMAKER , MODERATE TO SEVERE MITRAL REGURGITATION, MODERATE TO SEVERE AORTIC INSUFF, HX OF DIASTOLIC HEART FAILURE TREATMENT: (ER) NITRO BID, ADULT ASPIRIN (This form is maintained as a part of the permanent medical record) 2014 [employer]. All Rights Reserved [email or web address] [email or web address] Office: [phone] [facility]ALTHShawn
--- NOTE | 2017-06-10 13:01 | CON ---
DATE OF SERVICE: 06/10/2017 SERVICE: Pulmonary Medicine. REASON FOR CONSULTATION: ICU patient. HISTORY OF PRESENT ILLNESS: The patient is a 72-year-old white male with past medical history significant for COPD. He presented to the hospital with 3-4 day history of increasing dyspnea on exertion, cough, and sputum production. He also had increasing swelling in the lower extremities. He denies any current fevers, chills, nausea or vomiting. He is having a hard time clearing his airways. Otherwise, there has been no interval change to his condition. He presented to the Emergency Department and was found to be hypoxemic. He was transiently placed on BiPAP, but absolutely hated that machine. Overnight, he had improvement in symptoms. He only tolerated 1 hour of the BiPAP. He is asking to maintain mobility moving forward. PAST MEDICAL HISTORY: 1. COPD. 2. History of esophageal cancer. 3. Coronary artery disease. 4. Dyslipidemia. 5. Hypertension. 6. Hypothyroidism. 7. Major depressive disorder. 8. Mitral regurgitation, severe. 9. Aortic insufficiency, severe. 10. Chronic diastolic heart failure. PAST SURGICAL HISTORY: 1. Esophageal pull-through for cancer in 1996. 2. Coronary artery bypass graft x2 vessels. 3. Pacemaker placement. 4. MediPort placement. ALLERGIES: HEPARIN. MEDICATIONS: List of inpatient medications were reviewed. Multiple updates were made. SOCIAL HISTORY: Negative for alcohol, tobacco or illicit drug use. He has got a [id number] history of smoking. He quit 3 years ago. He denies any alcohol or illicit drugs. He lives with his for 54 years. He has no exposure to chemicals, dust asbestos or tuberculosis. FAMILY HISTORY: Noncontributory. REVIEW OF SYSTEMS: General, head, ears, eyes, nose, throat, cardiovascular, respiratory, GI, , musculoskeletal, neurologic and skin is negative except as mentioned in the HPI. PHYSICAL EXAMINATION: VITAL SIGNS: Afebrile, pulse 107, blood pressure 100/75, respirations 25, saturation 100% on 2 liters nasal cannula. GENERAL: The patient is awake, alert, no apparent distress. LUNGS: Excellent air entry. There is rhonchi present throughout bilateral lung garza with slightly prolonged expiratory phase. I do not appreciate wheezing. HEART: Normal rate. Tachycardic. Regular. ABDOMEN: Soft, nontender, nondistended. Bowel sounds positive. MUSCULOSKELETAL: No cyanosis or clubbing. There is a 2+ pitting in the left lower extremity below the level of the ankle. There is trace pitting edema in the right lower extremity in the same spot. NEUROLOGIC: Grossly nonfocal. GENITOURINARY: No Hazel. LABORATORY DATA: WBC 13.0, hemoglobin 10.3, platelets 212,000. PH 7.44, pCO2 of 39, pO2 of 96. Basic metabolic profile is essentially unremarkable. Troponin 0.084. Liver function studies are minimally elevated at 5960 respectively. Lactate has cleared. Urinalysis is unremarkable. Blood cultures negative x2 to date. IMAGING: Chest x-ray demonstrates multifocal bilateral infiltrates, bilateral pleural effusions, and atherosclerosis. ASSESSMENT: 1. Acute hypoxic respiratory failure. 2. Chronic obstructive pulmonary disease with acute exacerbation. 3. Acute on chronic diastolic and valvular heart failure. 4. Community-acquired pneumonia, possible. PLAN: We will continue to diurese the patient to euvolemia. He is coughing up significant amounts of sputum. We will initiate physiotherapy, give him mucolytic agents. We discussed his nebulized medication regimen moving forward. We will move him to the telemetry unit and otherwise continue our supportive measurements. Pulmonary Critical Care will continue to follow for the time being. 70 minutes have been devoted to this patient in various activities. I personally reviewed all imaging studies and laboratory data noted within this document. For fifty percent of this time, I was interacting with the patient at the bedside or coordinating care with the care team. For the remainder of the time I was immediately available to the patient in the hospital unit. JEANNINE
[2017-06-10] MEDS ORDERED: Vancomycin HCl 750 MG in Sodium Chloride 0.9% 250 ML 250 ML IVPB SCH (18:00)
[2017-06-10] MEDS: Sodium Chloride 3% (15 ML) NEB NEB SCH (20:00)
[2017-06-10] MEDS ORDERED: Acetaminophen 500 MG TAB PO PRN (23:03)
[2017-06-10] MEDS: diphenhydrAMINE 50 MG CAP PO PRN (23:32)
[2017-06-11] MEDS: Cefepime 1 GM, Admixture Fee 1 EACH in Sodium Chloride 0.9% 10 ML SLOW IVP SCH ×2 (00:43→13:55)
[2017-06-11 04:36] LABS: #Lymphocytes 0.5 thou/uL (1.20-3.40); #Monocytes 1.2 thou/uL (0.11-0.59); #Neutrophils 13.8 thou/uL (1.40-6.50); %Basophils 0.1 % (0.0-1.0); %Eosinophils 0.3 % (0.0-10.0); %Monocytes 7.9 % (0.0-10.0); %Neutrophils 88.7 % (42.0-75.0); Hemoglobin 10.3 g/dL (14.0-18.0); Mean Corpuscular HGB CONC 30.8 g/dL (32.0-36.0); Mean Corpuscular Hemoglobin 26.9 pg (27.0-31.0); Mean Corpuscular Volume 87.2 fl (80.0-94.0); Mean Platelet Volume 7.8 fL (7.4-10.4); Platelet Count 204 thou/uL (130-400); RBC Distribution Width 16.4 % (11.5-14.5); Red Blood Cell (RBC) Count 3.82 mill/uL (4.70-6.10); White Blood Cell (WBC) Count 15.6 thou/uL (4.8-10.8)
[2017-06-11 05:01] LABS: Anion Gap 15 mmol/L (10-20); BUN (Urea Nitrogen) 70 mg/dL (8.4-25.7); Calc. Creatinine Clearance 39 mL/min (70-130); Calcium 8.7 mg/dL (7.8-10.44); Carbon Dioxide 28 mmol/L (23-31); Chloride 99 mmol/L (98-107); Estimated GFR-MDRD 53; Glucose 117 mg/dL (83-110); Potassium 4.5 mmol/L (3.5-5.1); Sodium 137 mmol/L (136-145)
[2017-06-11] MEDS: Levothyroxine Sodium 125 MCG TAB PO SCH (05:59)
[2017-06-11] MEDS: Sodium Chloride 3% (15 ML) NEB NEB SCH ×2 (08:05→19:32)
[2017-06-11] MEDS ORDERED: Furosemide 40 MG/4 ML VIAL SLOW IVP SCH (09:00)
--- NOTE | 2017-06-11 09:00 | PRG ---
DATE OF SERVICE: 06/11/2017 SERVICE: Pulmonary Medicine INTERVAL HISTORY: The physiotherapy started yesterday. The patient got a significant amount of sput um up. He feels actually quite a bit better today. He denies any current fevers, chills, nausea, vo miting or chest discomfort. He is coughing up significant amounts of jewell to slightly blood tinged sp utum. PHYSICAL EXAMINATION: VITAL SIGNS: Afebrile, pulse 104, blood pressure 111/69, respirations 22, saturation 97% on 4 liters nasal cannula. GENERAL: The patient is awake, alert, no apparent distress. LUNGS: Decent air entry. Rhonchi are extensively present throughout bilateral lung garza. There i s a slightly prolonged expiratory phase. I do not appreciate crackles. Wheezing is present. HEART: Tachycardic. Regular. ABDOMEN: Soft, nontender, nondistended. Bowel sounds positive. MUSCULOSKELETAL: No cyanosis or clubbing. There is no pitting. GENITOURINARY: No Hazel. NEUROLOGIC: Grossly nonfocal. LABORATORY DATA: WBC 15.6, hemoglobin 10.3, platelets 204,000. Creatinine 1.33, BUN 70. Basic meta bolic profile is otherwise unremarkable. Urinalysis is unremarkable. Blood cultures x2 is negative. Respiratory culture has extensive budding yeast present. There is 0-5 epithelial cells and a large amount of white blood cells. ASSESSMENT: 1. Acute hypoxic respiratory failure, resolving. 2. Minimal bronchiectasis with acute exacerbation. 3. Chronic obstructive pulmonary disease with acute exacerbation. 4. Acute on chronic diastolic and valvular heart failure, return to euvolemia: 1. Community-acquired pneumonia, possibly secondary to fungal organism. 2. Prerenal azotemia. PLAN: We will back off on his Lasix. We will continue our physiotherapy and antibiotics as previous ly noted. We are going to add micafungin for a 7-day course. Pulmonary will continue to follow the patient while he remains in house. We will try to work on his mobility to prevent deconditioning whi le he is in the hospital.
[2017-06-11] MEDS: predniSONE 20 MG TAB PO SCH (10:13)
[2017-06-11] MEDS: Docusate 100 MG CAP PO SCH ×2 (10:13→21:14)
[2017-06-11] MEDS: guaiFENesin ER 600 MG TAB PO SCH ×2 (10:13→21:14)
[2017-06-11] MEDS: Famotidine 20 MG TAB PO SCH (10:14)
[2017-06-11] MEDS: Atorvastatin Calcium 20 MG TAB PO SCH (10:14)
[2017-06-11] MEDS: Micafungin 100 MG in Sodium Chloride 0.9% 100 ML IVPB SCH (10:26)
--- NOTE | 2017-06-11 10:56 | PDOC.PN ---
- Subjective Encounter Start Date: 06/11/17 Encounter Start Time: 09:45 Subjective: MORE MUCUS COMING OUT. I AM MOVING AROUND MORE. - Objective Resuscitation Status: Resuscitation Status FULL:Full Resuscitation MAR Reviewed: Yes Vital Signs & Weight: Vital Signs (12 hours) Temp Pulse Resp BP Pulse Ox 06/11/17 09:00 102 H 22 H 06/11/17 08:05 106 H 24 H 98 06/11/17 05:00 97.6 F 104 H 22 H 111/69 97 06/11/17 02:22 22 H 98 06/11/17 00:28 98 F 108 H 22 H 109/67 93 L Weight Admit Weight 128 lb Weight 113 lb 4.8 oz Most Recent Monitor Data Heart Rate from ECG 108 NIBP 108/68 NIBP BP-Mean 84 Respiration from ECG 20 SpO2 97 I&O: 06/10/17 06/11/17 06/12/17 06:59 06:59 06:59 Intake Total 100 1120 Output Total 1225 1360 Balance -1125 -240 Result Diagrams: 06/11/17 04:06 06/11/17 04:06 Phys Exam - Physical Examination Constitutional: NAD HEENT: sclera anicteric Neck: supple Respiratory: wheezing present RHONCHI TACHYCARDIC Gastrointestinal: soft, non-tender Musculoskeletal: no edema Neurological: non-focal, moves all 4 limbs Psychiatric: normal affect, A&O x 3 Dx/Plan (1) COPD exacerbation Code(s): J44.1 - CHRONIC OBSTRUCTIVE PULMONARY DISEASE W (ACUTE) EXACERBATION Status: Acute (2) Pneumonia Code(s): J18.9 - PNEUMONIA, UNSPECIFIED ORGANISM Status: Acute (3) Shortness of breath Code(s): R06.02 - SHORTNESS OF BREATH Status: Acute (4) Hypothyroidism Code(s): E03.9 - HYPOTHYROIDISM, UNSPECIFIED Status: Chronic (5) S/P CABG (coronary artery bypass graft) Code(s): Z95.1 - PRESENCE OF AORTOCORONARY BYPASS GRAFT Status: Chronic (6) CHF (congestive heart failure) Code(s): I50.9 - HEART FAILURE, UNSPECIFIED Status: Suspected (7) Azotemia Code(s): R79.89 - OTHER SPECIFIED ABNORMAL FINDINGS OF BLOOD CHEMISTRY Status : Acute - Plan cont current plan of care, continue antibiotics, respiratory therapy, incentive spirometry APPRECIATE RECCS PER PULMONARY. ANTIFUNGAL ADDED TO ANTIBIOTIC REGIMEN. * .
[2017-06-11] MEDS: diphenhydrAMINE 50 MG CAP PO PRN (21:21)
[2017-06-12] MEDS: Cefepime 1 GM, Admixture Fee 1 EACH in Sodium Chloride 0.9% 10 ML SLOW IVP SCH ×2 (00:38→13:02)
[2017-06-12 04:57] LABS: #Lymphocytes 0.4 thou/uL (1.20-3.40); #Monocytes 1.2 thou/uL (0.11-0.59); #Neutrophils 14.2 thou/uL (1.40-6.50); %Eosinophils 0.2 % (0.0-10.0); %Lymphocytes 2.4 % (21.0-51.0); %Monocytes 7.4 % (0.0-10.0); Hemoglobin 10.9 g/dL (14.0-18.0); Mean Corpuscular HGB CONC 30.3 g/dL (32.0-36.0); Mean Corpuscular Hemoglobin 27.3 pg (27.0-31.0); Mean Corpuscular Volume 90.1 fl (80.0-94.0); Mean Platelet Volume 8.5 fL (7.4-10.4); Platelet Count 190 thou/uL (130-400); RBC Distribution Width 16.3 % (11.5-14.5); White Blood Cell (WBC) Count 15.8 thou/uL (4.8-10.8)
[2017-06-12 05:12] LABS: Anion Gap 17 mmol/L (10-20); BUN (Urea Nitrogen) 92 mg/dL (8.4-25.7); Calc. Creatinine Clearance 33 mL/min (70-130); Calcium 8.9 mg/dL (7.8-10.44); Carbon Dioxide 26 mmol/L (23-31); Chloride 99 mmol/L (98-107); Estimated GFR-MDRD 46; Glucose 141 mg/dL (83-110); Potassium 4.8 mmol/L (3.5-5.1); Sodium 137 mmol/L (136-145)
[2017-06-12] MEDS: Levothyroxine Sodium 125 MCG TAB PO SCH (05:15)
[2017-06-12] MEDS: Sodium Chloride 3% (15 ML) NEB NEB SCH ×2 (06:35→18:52)
--- NOTE | 2017-06-12 08:31 | PDOC.PN ---
- Subjective Encounter Start Date: 06/12/17 Encounter Start Time: 07:30 Subjective: feel weaker today, I had tough time breathing last night - Objective Resuscitation Status: Resuscitation Status FULL:Full Resuscitation MAR Reviewed: Yes Vital Signs & Weight: Vital Signs (12 hours) Temp Pulse Resp BP Pulse Ox 06/12/17 08:00 96.6 F L 106 H 24 H 119/71 92 L 06/12/17 07:20 105 H 24 H 92 L 06/12/17 06:35 107 H 24 H 66 L 06/12/17 05:17 106 H 24 H 06/12/17 04:01 97.3 F L 108 H 14 109/59 L 92 L 06/11/17 23:52 97.8 F 108 H 18 119/66 92 L 06/11/17 21:22 97.7 F 110 H 20 94 L Weight Admit Weight 128 lb Weight 115 lb 14.4 oz Most Recent Monitor Data Heart Rate from ECG 108 NIBP 108/68 NIBP BP-Mean 84 Respiration from ECG 20 SpO2 97 I&O: 06/11/17 06/12/17 06/13/17 06:59 06:59 06:59 Intake Total 1120 1920 Output Total 1360 250 Balance -240 1670 Result Diagrams: 06/12/17 04:18 06/12/17 04:18 Radiology Reviewed by me: Yes Phys Exam - Physical Examination fatigued but non toxic HEENT: PERRLA, sclera anicteric Neck: supple rhonchi, rales, wheezing, labored tachycardic Gastrointestinal: soft, non-tender Musculoskeletal: no edema Neurological: non-focal, moves all 4 limbs Psychiatric: normal affect, A&O x 3 Skin: no rash Dx/Plan (1) COPD exacerbation Code(s): J44.1 - CHRONIC OBSTRUCTIVE PULMONARY DISEASE W (ACUTE) EXACERBATION Status: Acute (2) Pneumonia Code(s): J18.9 - PNEUMONIA, UNSPECIFIED ORGANISM Status: Acute (3) Shortness of breath Code(s): R06.02 - SHORTNESS OF BREATH Status: Acute (4) Hypothyroidism Code(s): E03.9 - HYPOTHYROIDISM, UNSPECIFIED Status: Chronic (5) S/P CABG (coronary artery bypass graft) Code(s): Z95.1 - PRESENCE OF AORTOCORONARY BYPASS GRAFT Status: Chronic (6) CHF (congestive heart failure) Code(s): I50.9 - HEART FAILURE, UNSPECIFIED Status: Suspected (7) Azotemia Code(s): R79.89 - OTHER SPECIFIED ABNORMAL FINDINGS OF BLOOD CHEMISTRY Status : Acute - Plan continue antibiotics, respiratory therapy case d/w Dr. Terrazas..residence leasing agent. patient with airway inflammation and -: mucous. Desats most likely at night from [facility]. Will await new reccs * .
[2017-06-12] MEDS: Micafungin 100 MG in Sodium Chloride 0.9% 100 ML IVPB SCH (08:36)
[2017-06-12] MEDS: Atorvastatin Calcium 20 MG TAB PO SCH (08:37)
[2017-06-12] MEDS: guaiFENesin ER 600 MG TAB PO SCH ×2 (08:37→21:33)
[2017-06-12] MEDS: predniSONE 20 MG TAB PO SCH (08:38)
[2017-06-12] MEDS: Docusate 100 MG CAP PO SCH ×2 (08:38→21:33)
[2017-06-12] MEDS: Famotidine 20 MG TAB PO SCH (09:05)
--- NOTE | 2017-06-12 09:50 | RAD ---
CHEST 1 VIEW: HISTORY: A 72-year-old female with a history of followup pneumonia. COMPARISON: 06/09/17. FINDINGS: Again noted is extensive bilateral alveolar and interstitial parenchymal changes. Again noted is a s mall focal area of right lung herniation lateral to the lower right rib cage. The parenchymal change s actually appear to be more extensive and more dense than on the prior study. IMPRESSION: Persistent and probably slightly worsening extensive bilateral pneumonia with bilateral pleural effus ion changes. Continued short-term followup for clearing or stability. POS: [facility]
[2017-06-12] MEDS: Mometasone/Formoterol 120 PUFF INHALER INH SCH ×2 (10:44→19:38)
[2017-06-12] MEDS ORDERED: Sodium Chloride 0.9% 10 ML ONE (12:58)
--- NOTE | 2017-06-12 14:23 | EKG ---
Test Reason : Blood Pressure : / mmHG Vent. Rate : 108 BPM Atrial Rate : 108 BPM P-R Int : 158 ms QRS Dur : 166 ms QT Int : 380 ms P-R-T Axes : -20 -66 106 degrees QTc Int : 509 ms Atrial-sensed ventricular-paced rhythm Abnormal ECG Confirmed by SONIA CARRANZA M.D. ([id number]), television news video editor CHANDU BECKWITH ([id number]) on 06/12/2017 2:22:01 PM Referred By: Confirmed By:SONIA CARRANZA M.D.
--- NOTE | 2017-06-12 16:47 | PRG ---
DATE OF SERVICE: 06/12/2017 SUBJECTIVE: Mr. Colón this morning, he is having difficulty handling his secretions. His cough is po or. OBJECTIVE: VITAL SIGNS: His sats are 92% on 4 liters, respiratory rate 24, temperature 98.6, pulse 106. CHEST: Reveals extensive rhonchi and crackles. CARDIAC: Sinus tachycardia. ABDOMEN: Soft, no masses. IMAGING DATA AND LABORATORY DATA: His last chest x-ray 4 days ago showed bilateral bronchopneumonia. His creatinine is 1.5, BUN is 92, is prerenal. Sodium 115, hemoglobin and hematocrit 10 and 36. IMPRESSION: 1. Acute exacerbation of bronchitis, bilateral pneumonia. 2. Azotemia. PLAN: Avoid diuretics. Continue neb treatments, steroids. I have added Symbicort to his present neb treatments. If condition gets worse, he may need to be tra nsferred back to the ICU.
[2017-06-12] MEDS ORDERED: Sodium Chloride 0.65% Nasal 44 ML BOT EA NARE PRN (17:54)
[2017-06-12] MEDS: diphenhydrAMINE 50 MG CAP PO PRN (21:34)
[2017-06-13] MEDS: Cefepime 1 GM, Admixture Fee 1 EACH in Sodium Chloride 0.9% 10 ML SLOW IVP SCH ×2 (02:38→12:38)
[2017-06-13 05:11] LABS: Anion Gap 20 mmol/L (10-20); Calc. Creatinine Clearance 26 mL/min (70-130); Calcium 8.6 mg/dL (7.8-10.44); Carbon Dioxide 24 mmol/L (23-31); Chloride 97 mmol/L (98-107); Estimated GFR-MDRD 35; Glucose 105 mg/dL (83-110); Potassium 5.4 mmol/L (3.5-5.1); Sodium 136 mmol/L (136-145)
[2017-06-13 05:27] LABS: BUN (Urea Nitrogen) 115 mg/dL (8.4-25.7)
[2017-06-13 05:38] LABS: Band 4 % (5-11); Hemoglobin 10.4 g/dL (14.0-18.0); Lymphocytes 3 % (21-51); MDiff Complete? YES; Mean Corpuscular HGB CONC 30.4 g/dL (32.0-36.0); Mean Corpuscular Hemoglobin 27.1 pg (27.0-31.0); Mean Corpuscular Volume 89.1 fl (80.0-94.0); Mean Platelet Volume 9.1 fL (7.4-10.4); Monocytes 4 % (0-10); Neutrophil 89 % (42-75); Platelet Count 126 thou/uL (130-400); RBC Distribution Width 16.2 % (11.5-14.5); Red Blood Cell (RBC) Count 3.84 mill/uL (4.70-6.10); White Blood Cell (WBC) Count 23.3 thou/uL (4.8-10.8)
[2017-06-13 05:51] LABS: Hemoglobin 10.5 g/dL (14.0-18.0); Mean Corpuscular HGB CONC 29.3 g/dL (32.0-36.0); Mean Corpuscular Hemoglobin 26.4 pg (27.0-31.0); Mean Platelet Volume 9.2 fL (7.4-10.4); Platelet Count 108 thou/uL (130-400); RBC Distribution Width 16.5 % (11.5-14.5); Red Blood Cell (RBC) Count 3.98 mill/uL (4.70-6.10); White Blood Cell (WBC) Count 22.9 thou/uL (4.8-10.8)
[2017-06-13 06:05] LABS: ALT (SGPT) 1559 U/L (8-55); AST (SGOT) 2013 U/L (5-34); Albumin 3.6 g/dL (3.4-4.8); Alkaline Phosphatase 405 U/L (40-150); Anion Gap 22 mmol/L (10-20); BUN (Urea Nitrogen) 117 mg/dL (8.4-25.7); Bilirubin, Total 1.3 mg/dL (0.2-1.2); Calc. Creatinine Clearance 24 mL/min (70-130); Calcium 8.6 mg/dL (7.8-10.44); Carbon Dioxide 21 mmol/L (23-31); Chloride 98 mmol/L (98-107); Estimated GFR-MDRD 32; Globulin 3.4 g/dL (2.4-3.5); Glucose 103 mg/dL (83-110); Potassium 6.2 mmol/L (3.5-5.1); Sodium 135 mmol/L (136-145)
[2017-06-13 06:14] LABS: Band 4 % (5-11); Lymphocytes 7 % (21-51); MDiff Complete? YES; Monocytes 3 % (0-10); Myelocyte 1 % (0-0); Neutrophil 85 % (42-75); Nucleated RBC 2 % (0); PLT Morphology Comment Appears Decreased
[2017-06-13 06:18] LABS: CKMB 20.8 ng/mL (0-6.6); Lactic Acid 5.6 mmol/L (0.5-2.2); Troponin I 0.397 ng/mL (< 0.028)
[2017-06-13] MEDS: Levothyroxine Sodium 125 MCG TAB PO SCH (06:20)
[2017-06-13] MEDS ORDERED: Sodium Chloride 0.9% 1,000 ML IV SCH (06:30)
[2017-06-13 06:45] LABS: Actual Bicarbonate (HCO3a) 20.4 mEq/L (22-26); Base Excess (BEa) -8.3 mEq/L (0 (+/-) 2.5); CO2 Tension 59.8 mmHg (35.0-45.0); O2 Tension (PaO2) 188.8 mmHg (80.0-100.0); pH, Arterial 7.15 (7.35-7.45)
[2017-06-13] MEDS ORDERED: Norepinephrine 8 MG in Sodium Chloride 0.9% 250 ML 250 ML IVPB SCH (06:45)
[2017-06-13 06:46] LABS: Hematocrit-ABG 33.6 % (42.0-52.0); Hemoglobin (Hb) 9.2 g/dL (14.0-18.0); Puncture Site RB
--- NOTE | 2017-06-13 07:00 | PDOC.EVN ---
Event Note - Event Note Event Note: Kacey jesus call at 0517. Resident physician arrived within 2 minutes and CPR was in progress by nursing staff. Reportedly last seen normal 30 minutes prior for vital signs. Had been paced on telemetry but lost his pacer elam on monitoring and appeared to be in sinus rhythm. When tech went to check on leads, red lead was found off patient and he was found non responsive and not breathing without a pulse. Kacey jesus called at 0517 and CPR initiated per ACLS guidelines. Found to be in PEA upon rhythm check. 2 rounds of epinephrine given and shortly after a strong femoral pulse palpated. Patient was then intubated by resident physician using mac blade. Endotracheal tube visualized going through vocal cords. Color change visualized on CO2 meter. He was then transferred to CCU. See nursing notes for exact vitals but initial BP in 140's/70's and O2 improved to 90% upon intubation. Lung sounds with bilateral rhonchi, no wheezing. Labs drawn and pending. CXR ordered. ABG ordered. Patient's notified and she was in route to hospital. Care then transferred over to Dr. Weinberg, patient's primary doctor. Dr. Terrazas notified by nursing staff. Please see code report for exact details.
--- NOTE | 2017-06-13 07:01 | PDOC.EVN ---
Event Note - Event Note Event Note: Code Blue: Patient was in 2 N, Pt of Dr. Terrazas, admitted with CHF/ PNeumonia, pt had an Event of PEA at around 515 Am, and had 3 rounds of CPR with 3 Epi, pt got back the pulse and was started on IV fluid Bolus NS, pt did not regain consciousness Since then, he is [place] the [facility] [place], patient has no Central line, Called General Surgery and Anesthesi for the Line. ABG showed PH 7.1, with C02 59, Discussed with patient Family, and Son at bedside, updated about his Critical state, EKG showed paxced rhythm. Discussed with Dr. Terrazas on phone and updated.
[2017-06-13] MEDS: Mometasone/Formoterol 120 PUFF INHALER INH SCH (07:11)
[2017-06-13] MEDS ORDERED: Sodium Bicarb 50 MEQ/50 ML Abboject 8.4% SYRINGE IVP SCH (07:45)
[2017-06-13] MEDS ORDERED: Albumin 5% 500 ML ONE (07:46)
[2017-06-13] MEDS ORDERED: Insulin Regular 300 UNITS/3 ML VIAL ONE (07:47)
[2017-06-13] MEDS ORDERED: Insulin Regular 300 UNITS/3 ML VIAL IVP SCH (07:54)
[2017-06-13] MEDS ORDERED: Dextrose 50% Abboject 50 ML SYRINGE SLOW IVP SCH (08:00)
--- NOTE | 2017-06-13 08:33 | PDOC.PN ---
- Subjective Encounter Start Date: 06/13/17 Encounter Start Time: 07:15 -: non-verbal Subjective: S/P CODE BLUE. INTUBATED - Objective Resuscitation Status: Resuscitation Status FULL:Full Resuscitation MAR Reviewed: Yes Vital Signs & Weight: Vital Signs (12 hours) Temp Pulse Resp BP BP BP Pulse Ox 06/13/17 07:12 93 71/42 L 06/13/17 04:17 92 L 06/13/17 04:14 90 L 06/13/17 04:00 94 L 06/13/17 03:11 96.8 F L 105 H 24 H 06/13/17 02:51 96.8 F L 105 H 24 H 96/58 L 95 06/13/17 01:02 97.3 F L 107 H 22 H 06/13/17 00:40 97.3 F L 107 H 22 H 95/50 L 92 L 06/12/17 22:07 93 L 06/12/17 21:24 97.2 F L 105 H 22 H 98 06/12/17 21:23 97.2 F L 105 H 22 H 101/58 L 98 Weight Admit Weight 128 lb Weight 116 lb Most Recent Monitor Data Heart Rate from ECG 108 NIBP 108/68 NIBP BP-Mean 84 Respiration from ECG 20 SpO2 97 I&O: 06/12/17 06/13/17 06/14/17 06:59 06:59 06:59 Intake Total 1920 135 Output Total 250 175 Balance 1670 -40 Result Diagrams: 06/13/17 05:34 06/13/17 05:34 Phys Exam - Physical Examination INTUBATED, COMATOSE NO PERRL AT THIS TIME ETT IN PLACE COARSE BS Cardiovascular: RRR Gastrointestinal: soft Musculoskeletal: no edema COMATOSE Dx/Plan (1) COPD exacerbation Code(s): J44.1 - CHRONIC OBSTRUCTIVE PULMONARY DISEASE W (ACUTE) EXACERBATION Status: Acute (2) Pneumonia Code(s): J18.9 - PNEUMONIA, UNSPECIFIED ORGANISM Status: Acute (3) Shortness of breath Code(s): R06.02 - SHORTNESS OF BREATH Status: Acute (4) Hypothyroidism Code(s): E03.9 - HYPOTHYROIDISM, UNSPECIFIED Status: Chronic (5) S/P CABG (coronary artery bypass graft) Code(s): Z95.1 - PRESENCE OF AORTOCORONARY BYPASS GRAFT Status: Chronic (6) CHF (congestive heart failure) Code(s): I50.9 - HEART FAILURE, UNSPECIFIED Status: Suspected (7) Azotemia Code(s): R79.89 - OTHER SPECIFIED ABNORMAL FINDINGS OF BLOOD CHEMISTRY Status : Acute (8) Cardiac arrest due to other underlying condition Code(s): I46.8 - CARDIAC ARREST DUE TO OTHER UNDERLYING CONDITION Status: Acute - Plan plan discussed w/ family VERY CRITICAL SITUATION. FOUND WITH PEA AND UNRESPONSIVE. -: CURRENTLY INTUBATED IN CCU WITH PRESSORS INFUSION -: WE WILL ASSESS HIS CONDITION FOR CHANGES IN STATUS. CRITICAL CARE PHYSICIAN -: DIRECTING CARE AT THIS TIME. * .
--- NOTE | 2017-06-13 08:40 | RAD ---
CHEST 1 VIEW: HISTORY: A 72-year-old male with a history of respiratory insufficiency, intubation, code blue. COMPARISON: 5:50 a.m. 06/13/17. FINDINGS: Endotracheal tube remains in place. A right jugulovenous catheter has been placed with the tip exten ding into the superior vena cava without pneumothorax or significant pleural effusion. Very extensiv e bilateral alveolar parenchymal changes consistent with severe bilateral pneumonia. Bilateral stabl e costophrenic angle blunting. Monitor leads overlie the chest. Postop midline sternotomy. Left IC D. IMPRESSION: Right jugular venous catheter placement without pneumothorax or pleural effusion. Very extensive kathryn ateral pneumonia. Endotracheal tube remains in place. POS: [facility]
[2017-06-13] MEDS: Dextrose 50% Abboject 50 ML SYRINGE ONE ×2 (09:01→11:55)
[2017-06-13] MEDS: Sodium Bicarb 50 MEQ/50 ML Abboject 8.4% SYRINGE ONE ×2 (09:02→12:00)
[2017-06-13] MEDS: Sodium Chloride 0.9% 1,000 ML IV SCH ×2 (09:02→19:46)
[2017-06-13] MEDS ORDERED: Sedation Protocol FS ONE (09:13)
[2017-06-13] MEDS ORDERED: Lorazepam 2 MG/ML VIAL SLOW IVP PRN (09:17)
[2017-06-13] MEDS ORDERED: Fentanyl BOLUS 250 ML IVPB PRN (09:17)
[2017-06-13] MEDS ORDERED: fentaNYL Citrate/PF 2,000 MCG in Sodium Chloride 0.9% 60 ML IV SCH (09:17)
[2017-06-13] MEDS ORDERED: Morphine 2 MG/ML SYRINGE SLOW IVP PRN (09:17)
[2017-06-13] MEDS ORDERED: Propofol 1,000 MG/100 ML VIAL IV PRN (09:17)
[2017-06-13] MEDS ORDERED: DISCONTINUE PREVIOUS NARCOTIC PAIN MEDICATIONS AND BENZODIAZEPINES FS SCH (09:17)
[2017-06-13] MEDS: Docusate 100 MG CAP PO SCH (11:25)
[2017-06-13] MEDS: Famotidine 20 MG TAB PO SCH (11:25)
[2017-06-13] MEDS: Atorvastatin Calcium 20 MG TAB PO SCH (11:25)
[2017-06-13] MEDS: guaiFENesin ER 600 MG TAB PO SCH (11:25)
[2017-06-13 11:37] LABS: Actual Bicarbonate (HCO3a) 26.5 mEq/L (22-26); CO2 Tension 92.8 mmHg (35.0-45.0); O2 Tension (PaO2) 63.5 mmHg (80.0-100.0); pH, Arterial 7.07 (7.35-7.45)
[2017-06-13 11:37] LABS: Chloride 103 mmol/L (98-107); Potassium 5.1 mmol/L (3.5-5.1); Sodium 140 mmol/L (136-145)
[2017-06-13 11:38] LABS: Base Excess (BEa) -4.3 mEq/L (0 (+/-) 2.5); Hematocrit-ABG 31.7 % (42.0-52.0); Hemoglobin (Hb) 8.7 g/dL (14.0-18.0); Puncture Site RB
[2017-06-13 11:39] LABS: Anion Gap 19 mmol/L (10-20); Carbon Dioxide 23 mmol/L (23-31)
[2017-06-13 11:41] LABS: Calc. Creatinine Clearance 24 mL/min (70-130); Estimated GFR-MDRD 32
[2017-06-13] MEDS ORDERED: Dextrose 50% Abboject 50 ML SYRINGE ONE (11:50)
[2017-06-13 11:52] LABS: Calcium 7.2 mg/dL (7.8-10.44); Glucose 49 mg/dL (83-110)
[2017-06-13] MEDS ORDERED: Sodium Bicarb 50 MEQ/50 ML Abboject 8.4% SYRINGE ONE (11:57)
[2017-06-13 12:05] LABS: BUN (Urea Nitrogen) 123 mg/dL (8.4-25.7)
[2017-06-13] MEDS: Micafungin 100 MG in Sodium Chloride 0.9% 100 ML IVPB SCH (12:40)
[2017-06-13 12:45] LABS: Actual Bicarbonate (HCO3a) 25.3 mEq/L (22-26); Base Excess (BEa) -3.5 mEq/L (0 (+/-) 2.5); CO2 Tension 69.2 mmHg (35.0-45.0); O2 Tension (PaO2) 57.4 mmHg (80.0-100.0); pH, Arterial 7.18 (7.35-7.45)
[2017-06-13 12:46] LABS: Hematocrit-ABG 31.7 % (42.0-52.0); Hemoglobin (Hb) 9.1 g/dL (14.0-18.0); Puncture Site RB
--- NOTE | 2017-06-13 13:20 | RAD ---
SUPINE CHEST 1 VIEW: HISTORY: Respiratory insufficiency. Intubation. Code Blue. COMPARISON: 06/12/17. FINDINGS: Endotracheal tube has been placed in satisfactory location. Again noted are very extensive changes o f bilateral pneumonia and bilateral pleural effusions. The chest is somewhat obscured by considerabl e overlying monitor leads. IMPRESSION: Endotracheal tube placement in satisfactory location. Extensive bilateral stable pneumonia. POS: [facility]
[2017-06-13] MEDS ORDERED: Vasopressin 40 UNIT, Admixture Fee 1 EACH in Sodium Chloride 0.9% 100 ML IV SCH (13:45)
[2017-06-13] MEDS ORDERED: Meropenem 1 GM in Sterile Water 20 ML SLOW IVP SCH (14:00)
[2017-06-13] MEDS ORDERED: Meropenem 1 GM in Sodium Chloride 0.9% 100 ML IVPB SCH (14:00)
[2017-06-13 15:29] VITALS: BP 90/58
[2017-06-13] MEDS ORDERED: DOBUTamine 500 mg/250 ml 250 ML ONE (17:36)
[2017-06-13] MEDS ORDERED: DOBUTamine 500 mg/250 ml 500 MG in Premix Bag 1 BAG IVPB SCH (17:45)
[2017-06-13 17:52] VITALS: TEMP 98.7
--- NOTE | 2017-06-13 19:21 | CON ---
DATE OF SERVICE: 06/13/2017 This is a 72-year-old gentleman, who was in the monitored bed. Apparently 30 minutes prior to his pr esent event, he was found to have agonal respirations and apparently pulseless electrical activity. His sats are 95% on 4 liters. This was about 4:00. Apparently at 5:50, a code blue was called in. The patient was transferred to ICU. They tried to call me from medical floor at 6:[address] Terrazas was in the shower. So they called CCU and spoke with Dr. Weinberg the events. Apparently, he tells me that there was a pul se at the time of his initial event. He had no blood pressure. He is now started on Levophed and he is here at the bedside, trying to put a central line. The family members are outside. His stat chest x-ray taken right now shows that there are extensive infiltrates pretty much unchanged right greater than left. He has a 7.[address] Respiratory saw the patient, who responded to code blue full arrest. Apparently was given 2 amps of epinephrine. Transferred to the ICU. OBJECTIVE: VITAL SIGNS: Presently, his blood pressure 100/85, pulse 95, sats 97%, respirations 26. EYES: Pupils are 2 mm and unresponsive. CHEST: Reveals extensive rhonchi and crackles. CARDIAC: Sinus tachycardia. ABDOMEN: Soft. NEUROLOGIC: Unresponsive. LABORATORY DATA: Lab this morning, white count 20,000, hematocrit 10 and 30, platelet 108. PO2 of 1 88, pCO2 of 50, pH 7.15, 22, 100%, 450. BUN and creatinine are 117 and 2.0. Lactic acid 5.6. Tropo jovana is 0.93. His sputum did grow Mariella. He was started on micafungin. IMPRESSION: 1. Status post what appears to be initially respiratory events though that is unclear. 2. He has had a pulseless electrical activity, but apparently never lost his pulse. He was given 2 amps of epinephrine. 3. Extensive viral bronchopneumonia. 4. Azotemia, appears to be mainly prerenal 5. Severe deconditioning. 6. Hypothyroidism. 7. Cachexia. 8. Chronic obstructive pulmonary disease. PLAN: He is on broad-spectrum antibiotics, Maxipime, Levaquin, micafungin, steroid and neb treatment s. Started Plasmanate, D50, and insulin has been given. Repeat lab in several hours. Aggressive fl uid hydration. Discussed with family regarding overall input. Avoid sedation to reassess neurological status. This is a [id number] critical care time. We will follow. Reassess at a later time.
--- NOTE | 2017-06-14 00:34 | OP ---
Han Colón remains hypoxic on the vent and 10 of PEEP, 100 FIO2. It was felt at this stage we need to perform diagnostic bronchoscopy. I discussed with his at t he bedside. After informed consent, flexible bronchoscopy was passed using adapter. Distal trachea was visualize d, which was normal. Right lung was inspected, upper, middle, and lower and no obvious endobronchial disease was seen or blood was seen. This area was lavaged with normal saline about 40 mL. The left lung was inspected thereafter, left upper and left lower lobe, no obvious endobronchial obstruction or blood was seen and also lavaged with normal saline. The bronchial lavage fluids is grossly bloody and was sent to the lab for appropriate studies including cytology, culture, AFB smear, fungal smear and culture. The patient tolerated the procedure well. His prognosis is grave. Discussed with the family at kieran th. Awaiting results of his echo. I am going to start nutrition and PT. This is a bronchoscopy and lava ge exclusive of the previous one-half hour critical care time.
--- NOTE | 2017-06-15 20:19 | EKG ---
Test Reason : Blood Pressure : / mmHG Vent. Rate : 093 BPM Atrial Rate : 093 BPM P-R Int : 186 ms QRS Dur : 176 ms QT Int : 438 ms P-R-T Axes : 067 -75 106 degrees QTc Int : 544 ms Atrial-sensed ventricular-paced rhythm Abnormal ECG When compared with ECG of 09-JUN-2017 15:20, Vent. rate has decreased BY 15 BPM Confirmed by JEANE MCKEON ([id number]) on 06/15/2017 8:19:20 PM Referred By: IESHA Confirmed By:JEANE MCKEON
--- NOTE | 2017-07-13 21:54 | DS ---
DATE OF ADMISSION: 06/09/2017 DATE OF EXPIRATION: 06/13/2017 ADMISSION DIAGNOSIS: Chronic obstructive pulmonary disease exacerbation with bilateral pneumonia. HOSPITAL COURSE: The patient was admitted and under the care of the Hospitalist Service as well as Pulmonary Critical Care. The patient was followed closely by the Pulmonary Service. The patient was treated with empiric broad coverage antibiotics and provided with respiratory support per recommendations of the Pulmonary Department. The patient began to decompensate and a CODE BLUE was called on 06/13/2017. The patient was moved to the ICU. The patient continued to deteriorate. The patient was started on multiple vasopressors as well as intubated. The patient on 06/13/2017. JEANNINE
[2017-07-16 11:24] LABS: Fungus Culture Final report (.)
== END 2017-06-13 19:14 | disposition expired | DRG 853 ==
LOC: ERS 15:14 → 2SE 17:41 → CCU 06-10 00:33 → 2NO 06-10 17:33 → CCU 06-13 05:46
PROVIDERS: ADMIT Emergency Medicine; ATTEND Emergency Medicine
PROC: 0B9M8ZX Drainage of Bilateral Lungs, Via Natural or Artificial Opening Endoscopic, Diagnostic (ICD-10-PCS; principal; 2017-06-13)
PROC: 5A1935Z Respiratory Ventilation, Less than 24 Consecutive Hours (ICD-10-PCS; 2017-06-13)
PROC: 0BH17EZ Insertion of Endotracheal Airway into Trachea, Via Natural or Artificial Opening (ICD-10-PCS; 2017-06-13)
PROC: 5A12012 Performance of Cardiac Output, Single, Manual (ICD-10-PCS; 2017-06-13)
DX: A41.9 Sepsis, unspecified organism (principal); I50.33 Acute on chronic diastolic (congestive) heart failure; J96.01 Acute respiratory failure with hypoxia; J18.9 Pneumonia, unspecified organism; J44.1 Chronic obstructive pulmonary disease with (acute) exacerbation; R64 Cachexia; I24.8 Other forms of acute ischemic heart disease; Z68.1 Body mass index [BMI] 19.9 or less, adult; R65.20 Severe sepsis without septic shock; I25.10 Atherosclerotic heart disease of native coronary artery without angina pectoris; E78.5 Hyperlipidemia, unspecified; E03.9 Hypothyroidism, unspecified; F32.9 Major depressive disorder, single episode, unspecified; Z87.891 Personal history of nicotine dependence; Z85.01 Personal history of malignant neoplasm of esophagus; Z88.8 Allergy status to other drugs, medicaments and biological substances; Z79.82 Long term (current) use of aspirin; Z79.899 Other long term (current) drug therapy; Z95.1 Presence of aortocoronary bypass graft; Z95.0 Presence of cardiac pacemaker
CPT/HCPCS: 36415; 36416; 71045; 80048; 80053; 81003; 81015; 82553; 82805; 83605; 83880; 84484; 85025; 87040; 87070; 87102; 87116; 87205; 87206; 88112; 93005; 93010; 93306; 94002; 94640; 94660; 94664; 94667; 94668; 94760; 96365; 96366; 96368; 96375; A4216; G8978-GP-CK; G8979-GP-CI; J0692; J1250; J1815; J1940; J1956; J2185; J2248; J2543; J2920; J3010; J3370; J7050; J7506; J7611; J7620; P9045